=== PATIENT | male | born 1945 | race Two or more races ===

== ENCOUNTER 2022-05-25 02:03 | Emergency (ER) | payer OTHER ==
[~2022-05-25] VITALS: Ht 170.2 cm; Wt 70.0 kg
[2022-05-25 02:20] VITALS: BP 162/87
[2022-05-25 03:44] LABS: Urine Bacteria FEW /hpf (None Seen); Urine Blood 3+ /uL (Negative); Urine Specific Gravity 1.006 (1.001-1.035); Urine WBC 159 /hpf (0 - 3); Urine WBC Clumps PRESENT /hpf (None Seen)
[2022-05-25] MEDS ORDERED: cefTRIAXone 1GM/50ML D5W 50 ML IV ONE (03:45)
== END 2022-05-25 05:00 | disposition home or self-care (01) ==
LOC: EDBD 02:03 → ER 02:16
DX: T83.091A Other mechanical complication of indwelling urethral catheter, initial encounter (principal); N39.0 Urinary tract infection, site not specified; I10 Essential (primary) hypertension; Z86.73 Personal history of transient ischemic attack (TIA), and cerebral infarction without residual deficits
CPT/HCPCS: 51702; 81001; 96365; 99284; J0696

== ENCOUNTER 2022-07-08 11:46 | Emergency (ER) | payer OTHER ==
[~2022-07-08] VITALS: Ht 175.3 cm; Wt 73.0 kg
[2022-07-08 19:08] LABS: Albumin 3.4 g/dL (3.4-5.0); BUN/Creatinine Ratio 26.4; Calcium 9.4 mg/dL (8.5-10.1); Potassium 3.5 mmol/L (3.5-5.1)
[2022-07-08 19:17] LABS: Basophils # (auto) 0.1 10 ^3/uL (0-0.2); Basophils % (auto) 1.2 % (0.0-2.0); Eosinophils # (auto) 0.1 10 ^3/uL (0-0.8); Eosinophils % (auto) 3.3 % (0.0-7.0); Hematocrit 35.6 % (41.0-53.0); Hemoglobin 11.6 g/dL (13.5-17.5); Lymphocytes % (auto) 45.5 % (10.0-50.0); Mean Corpuscular Hgb Conc. 32.7 g/dL (32.0-36.0); Mean Corpuscular Volume 91.8 fL (80.0-100.0); Monocytes # (auto) 0.3 10 ^3/uL (0-1.3); Monocytes % (auto) 7.2 % (0.0-12.0); Neutrophils # (auto) 1.9 10 ^3/uL (1.6-8.6); Neutrophils % (auto) 42.8 % (37.0-80.0); Nucleated Red Blood Cells % 0.2 %; Red Blood Cells 3.88 10^6/uL (4.5-5.90); Red Cell Distribution Width 14.8 % (11.8-14.3); White Blood Cell 4.4 10^3/uL (4.4-10.8)
[2022-07-08 19:20] LABS: Total Protein 7.2 g/dL (6.4-8.2)
[2022-07-08] MEDS ORDERED: CEPH-510 PO (20:59)
[2022-07-08 22:38] LABS: Urine Bacteria MOD /hpf (None Seen); Urine Blood 3+ /uL (Negative); Urine Specific Gravity 1.003 (1.001-1.035); Urine WBC 46 /hpf (0 - 3)
[2022-07-08 23:14] VITALS: BP 146/83
== END 2022-07-08 23:40 | disposition home or self-care (01) ==
LOC: ER 12:00
DX: N39.0 Urinary tract infection, site not specified (principal); I10 Essential (primary) hypertension; Z86.73 Personal history of transient ischemic attack (TIA), and cerebral infarction without residual deficits
CPT/HCPCS: 36415; 51702; 80053; 81001; 85025

== ENCOUNTER → 2022-08-08 | Outpatient (CLI) | payer OTHER ==
[~2022-08-08] MED LIST: CEPH-510 PO
[2022-08-08 10:48] LABS: Basophils # (auto) 0 10 ^3/uL (0-0.2); Basophils % (auto) 0.7 % (0.0-2.0); Eosinophils # (auto) 0.1 10 ^3/uL (0-0.8); Eosinophils % (auto) 3.8 % (0.0-7.0); Hemoglobin 11.6 g/dL (13.5-17.5); Lymphocytes # (auto) 1.7 10 ^3/uL (0.4-5.4); Lymphocytes % (auto) 44.6 % (10.0-50.0); Mean Corpuscular Hgb Conc. 33.1 g/dL (32.0-36.0); Mean Corpuscular Volume 90.5 fL (80.0-100.0); Monocytes # (auto) 0.3 10 ^3/uL (0-1.3); Monocytes % (auto) 7.6 % (0.0-12.0); Neutrophils # (auto) 1.7 10 ^3/uL (1.6-8.6); Neutrophils % (auto) 43.3 % (37.0-80.0); Nucleated Red Blood Cells % 0.1 %; Red Blood Cells 3.87 10^6/uL (4.5-5.90); White Blood Cell 3.8 10^3/uL (4.4-10.8)
[2022-08-08 11:07] LABS: Albumin 3.2 g/dL (3.4-5.0); Calcium 9.2 mg/dL (8.5-10.1); Potassium 3.5 mmol/L (3.5-5.1)
[2022-08-08 11:14] LABS: BUN/Creatinine Ratio 14.7; Bilirubin, Total 0.9 mg/dL (0.2-1.0); Total Protein 6.6 g/dL (6.4-8.2)
== END | disposition home or self-care (01) ==
LOC: LAB 10:08
PROVIDERS: ATTEND Student in an Organized Health Care Education/Training Program
DX: I10 Essential (primary) hypertension (principal); R73.9 Hyperglycemia, unspecified
CPT/HCPCS: 36415; 80053; 80061; 83036; 84443; 85025

== ENCOUNTER → 2022-09-14 | Outpatient (CLI) | payer OTHER ==
[2022-09-14 14:28] LABS: Urine Bacteria FEW /hpf (None Seen); Urine Blood 3+ /uL (Negative); Urine Budding Yeast MODERATE /hpf (None Seen); Urine Mucus FEW (None Seen); Urine Specific Gravity 1.011 (1.001-1.035); Urine WBC 330 /hpf (0 - 3); Urine WBC Clumps PRESENT /hpf (None Seen)
== END | disposition home or self-care (01) ==
LOC: LAB 12:50
PROVIDERS: ATTEND Urology
DX: N39.0 Urinary tract infection, site not specified (principal)
CPT/HCPCS: 81001; 87086

== ENCOUNTER → 2022-10-11 | Outpatient (CLI) | payer OTHER ==
[2022-10-11 10:42] LABS: Basophils # (auto) 0 10 ^3/uL (0-0.2); Basophils % (auto) 0.6 % (0.0-2.0); Eosinophils # (auto) 0.1 10 ^3/uL (0-0.8); Eosinophils % (auto) 3.1 % (0.0-7.0); Hematocrit 37.2 % (41.0-53.0); Hemoglobin 12.7 g/dL (13.5-17.5); Lymphocytes # (auto) 1.7 10 ^3/uL (0.4-5.4); Lymphocytes % (auto) 43.3 % (10.0-50.0); Mean Corpuscular Hemoglobin 31.4 pg (28.0-32.0); Mean Corpuscular Hgb Conc. 34.1 g/dL (32.0-36.0); Mean Corpuscular Volume 91.9 fL (80.0-100.0); Monocytes # (auto) 0.3 10 ^3/uL (0-1.3); Neutrophils # (auto) 1.8 10 ^3/uL (1.6-8.6); Red Blood Cells 4.05 10^6/uL (4.5-5.90); Red Cell Distribution Width 14.9 % (11.8-14.3); White Blood Cell 3.9 10^3/uL (4.4-10.8)
[2022-10-11 10:51] LABS: Potassium 3.3 mmol/L (3.5-5.1)
[2022-10-11 11:05] LABS: Albumin 3.2 g/dL (3.4-5.0); BUN/Creatinine Ratio 12.3; Bilirubin, Total 0.8 mg/dL (0.2-1.0); Calcium 9.1 mg/dL (8.5-10.1)
== END | disposition home or self-care (01) ==
LOC: LAB 09:48
PROVIDERS: ATTEND Student in an Organized Health Care Education/Training Program
DX: I10 Essential (primary) hypertension (principal); E78.5 Hyperlipidemia, unspecified
CPT/HCPCS: 36415; 80053; 80061; 85025

== ENCOUNTER → 2022-11-16 | Outpatient (CLI) | payer OTHER ==
[2022-11-16 15:44] LABS: Urine Bacteria FEW /hpf (None Seen); Urine Blood 3+ /uL (Negative); Urine Specific Gravity 1.004 (1.001-1.035); Urine WBC 72 /hpf (0 - 3); Urine WBC Clumps PRESENT /hpf (None Seen)
== END | disposition home or self-care (01) ==
LOC: LAB 15:16
PROVIDERS: ATTEND Urology
DX: N39.0 Urinary tract infection, site not specified (principal)
CPT/HCPCS: 81001; 87086

== ENCOUNTER 2022-11-23 15:53 | Emergency (ER) | payer OTHER ==
[~2022-11-23] VITALS: Ht 175.3 cm; Wt 77.2 kg
[2022-11-23 16:59] VITALS: BP 137/86
[2022-11-23] MEDS ORDERED: CIPR-173 PO (17:59)
[2022-11-23 18:30] LABS: Urine Bacteria NONE SEEN /hpf (None Seen); Urine Blood 3+ /uL (Negative); Urine Specific Gravity 1.014 (1.001-1.035); Urine WBC 451 /hpf (0 - 3); Urine WBC Clumps PRESENT /hpf (None Seen)
== END 2022-11-23 18:15 | disposition home or self-care (01) ==
LOC: ER 15:53
DX: T83.098A Other mechanical complication of other urinary catheter, initial encounter (principal); N39.0 Urinary tract infection, site not specified; I10 Essential (primary) hypertension; Z86.73 Personal history of transient ischemic attack (TIA), and cerebral infarction without residual deficits
CPT/HCPCS: 51702; 81001

== ENCOUNTER → 2022-12-04 | Outpatient (CLI) | payer OTHER ==
[~2022-12-04] MED LIST changes: +CIPR-173 PO
[2022-12-04 13:12] LABS: Urine Bacteria NONE SEEN /hpf (None Seen); Urine Blood TRACE /uL (Negative); Urine Mucus FEW (None Seen); Urine Specific Gravity 1.024 (1.001-1.035); Urine WBC 164 /hpf (0 - 3); Urine WBC Clumps PRESENT /hpf (None Seen)
== END | disposition home or self-care (01) ==
LOC: LAB 12:40
PROVIDERS: ATTEND Urology
DX: N39.0 Urinary tract infection, site not specified (principal)
CPT/HCPCS: 81001; 87086

== ENCOUNTER → 2023-01-17 | Outpatient (CLI) | payer OTHER | END | disposition home or self-care (01) | LOC: XY 09:03 | PROVIDERS: ATTEND Internal Medicine | DX: Z01.810 Encounter for preprocedural cardiovascular examination (principal) | CPT/HCPCS: 93886 ==

== ENCOUNTER → 2023-01-22 | Outpatient (CLI) | payer OTHER | END | disposition home or self-care (01) | LOC: XYW 07:57 | PROVIDERS: ATTEND Internal Medicine | DX: Z01.810 Encounter for preprocedural cardiovascular examination (principal); I51.7 Cardiomegaly | CPT/HCPCS: 93306 ==

== ENCOUNTER 2023-05-21 13:15 | Emergency (ER) | payer OTHER ==
[~2023-05-21] VITALS: Ht 175.3 cm; Wt 77.0 kg
[2023-05-21 14:00] LABS: Basophils # (auto) 0 10 ^3/uL (0-0.2); Basophils % (auto) 0.4 % (0.0-2.0); Eosinophils # (auto) 0 10 ^3/uL (0-0.8); Eosinophils % (auto) 0.7 % (0.0-7.0); Hematocrit 36.2 % (41.0-53.0); Lymphocytes # (auto) 1.7 10 ^3/uL (0.4-5.4); Lymphocytes % (auto) 36.5 % (10.0-50.0); Mean Corpuscular Hgb Conc. 33.3 g/dL (32.0-36.0); Mean Corpuscular Volume 93.2 fL (80.0-100.0); Monocytes # (auto) 0.3 10 ^3/uL (0-1.3); Neutrophils # (auto) 2.7 10 ^3/uL (1.6-8.6); Neutrophils % (auto) 56.4 % (37.0-80.0); Nucleated Red Blood Cells % 0.1 %; Red Blood Cells 3.88 10^6/uL (4.5-5.90); Red Cell Distribution Width 13.7 % (11.8-14.3); White Blood Cell 4.7 10^3/uL (4.4-10.8)
[2023-05-21 14:23] LABS: Albumin 3.3 g/dL (3.4-5.0); Calcium 8.7 mg/dL (8.5-10.1); Potassium 3.2 mmol/L (3.5-5.1)
[2023-05-21 14:29] LABS: BUN/Creatinine Ratio 14.5 (10.0-20.0); Bilirubin, Total 0.7 mg/dL (0.2-1.0); Total Protein 7.4 g/dL (6.4-8.2)
[2023-05-21 17:07] LABS: Urine Amorphous Crystal MOD /hpf (None Seen); Urine Bacteria NONE SEEN /hpf (None Seen); Urine Blood Negative /uL (Negative); Urine Clarity CLOUDY (Clear); Urine Color Yellow (Yellow); Urine Protein, UAD 1+ (Negative); Urine Specific Gravity 1.014 (1.001-1.035); Urine Urobilinogen Normal (Negative); Urine WBC 63 /hpf (0 - 3)
[2023-05-21] MEDS ORDERED: CEPH250C PO (18:06)
[2023-05-21] MEDS ORDERED: CEPHALEXIN 250 MG CAP PO ONE (18:15)
[2023-05-21 18:21] VITALS: BP 156/74; PULSE 62; RESP 16; TEMP 97.5; O2SAT 96
== END 2023-05-21 18:30 | disposition home or self-care (01) ==
LOC: ER 13:15
DX: R42 Dizziness and giddiness (principal); R53.1 Weakness; I10 Essential (primary) hypertension; Z86.73 Personal history of transient ischemic attack (TIA), and cerebral infarction without residual deficits
CPT/HCPCS: 36415; 70450; 80053; 81001; 85025; 93005

== ENCOUNTER → 2023-08-28 | Outpatient (CLI) | payer OTHER ==
[~2023-08-28] MED LIST changes: +CEPH250C PO
[2023-08-28 08:00] LABS: Alanine Aminotransferase 30 U/L (7-40); Alkaline Phosphatase 89 U/L (46-116); Anion Gap 4 (5-15); BUN/Creatinine Ratio 7.9 (10.0-20.0); Blood Urea Nitrogen 5 mg/dL (9-23); Calcium 9.5 mg/dL (8.5-10.1); Carbon Dioxide 32 mmol/L (20-30); Chloride 105 mmol/L (98-107); Glucose 96 mg/dL (74-106); LDL Cholesterol 37 mg/dL (< 100); Potassium 3.2 mmol/L (3.5-5.1); Sodium 141 mmol/L (136-145); Triglycerides 49 mg/dL (< 150)
[2023-08-28 08:01] LABS: Albumin 4.2 g/dL (3.2-4.8); Aspartate Aminotransferase 22 U/L (13-40); Cholesterol 102 mg/dL (< 200)
[2023-08-28 08:02] LABS: Bilirubin, Total 1.2 mg/dL (0.2-1.0); HDL Cholesterol 48 mg/dL (40-59); Total Protein 7.6 g/dL (5.7-8.2)
[2023-08-28 08:13] LABS: Urine Bacteria NONE SEEN /hpf (None Seen); Urine Blood TRACE /uL (Negative); Urine Clarity HAZY (Clear); Urine Color Straw (Yellow); Urine Protein, UAD Negative (Negative); Urine Specific Gravity 1.009 (1.001-1.035); Urine Urobilinogen Normal (Negative); Urine WBC 15 /hpf (0 - 3); Urine WBC Clumps PRESENT /hpf (None Seen)
[2023-08-28 08:25] LABS: Basophils # (auto) 0 10 ^3/uL (0-0.2); Basophils % (auto) 0.7 % (0.0-2.0); Eosinophils # (auto) 0.1 10 ^3/uL (0-0.8); Eosinophils % (auto) 3.9 % (0.0-7.0); Hematocrit 39.7 % (41.0-53.0); Hemoglobin 13.3 g/dL (13.5-17.5); Lymphocytes # (auto) 1.9 10 ^3/uL (0.4-5.4); Lymphocytes % (auto) 52.1 % (10.0-50.0); Mean Corpuscular Hemoglobin 30.9 pg (28.0-32.0); Mean Corpuscular Hgb Conc. 33.5 g/dL (32.0-36.0); Mean Corpuscular Volume 92.3 fL (80.0-100.0); Monocytes # (auto) 0.3 10 ^3/uL (0-1.3); Monocytes % (auto) 7.3 % (0.0-12.0); Neutrophils # (auto) 1.3 10 ^3/uL (1.6-8.6); Nucleated Red Blood Cells % 0.1 %; Red Cell Distribution Width 14.3 % (11.8-14.3); White Blood Cell 3.7 10^3/uL (4.4-10.8)
== END | disposition home or self-care (01) ==
LOC: LAB 07:25
PROVIDERS: ATTEND Student in an Organized Health Care Education/Training Program
DX: I10 Essential (primary) hypertension (principal); N40.0 Benign prostatic hyperplasia without lower urinary tract symptoms
CPT/HCPCS: 36415; 80053; 80061; 81001; 84153; 85025

== ENCOUNTER → 2023-09-13 | Day surgery (SDC) | payer OTHER ==
[2023-09-11 12:33] LABS: Basophils # (auto) 0 10 ^3/uL (0-0.2); Basophils % (auto) 1.3 % (0.0-2.0); Eosinophils # (auto) 0.2 10 ^3/uL (0-0.8); Eosinophils % (auto) 5.1 % (0.0-7.0); Hematocrit 37.5 % (41.0-53.0); Hemoglobin 12.8 g/dL (13.5-17.5); Lymphocytes # (auto) 1.6 10 ^3/uL (0.4-5.4); Lymphocytes % (auto) 43.5 % (10.0-50.0); Mean Corpuscular Hemoglobin 31.4 pg (28.0-32.0); Mean Corpuscular Volume 92.4 fL (80.0-100.0); Monocytes # (auto) 0.3 10 ^3/uL (0-1.3); Monocytes % (auto) 8.6 % (0.0-12.0); Neutrophils # (auto) 1.6 10 ^3/uL (1.6-8.6); Neutrophils % (auto) 41.5 % (37.0-80.0); Nucleated Red Blood Cells % 0.1 %; Red Blood Cells 4.06 10^6/uL (4.5-5.90); Red Cell Distribution Width 14.5 % (11.8-14.3); White Blood Cell 3.8 10^3/uL (4.4-10.8)
[2023-09-11 12:54] LABS: INR 1.08 (0.9-1.15); Partial Thromboplastin Time 28.8 SEC (24.5-34.5); Prothrombin Time 11.3 sec (9.3-11.8)
[2023-09-11 13:04] LABS: Urine Bacteria FEW /hpf (None Seen); Urine Blood Negative /uL (Negative); Urine Clarity HAZY (Clear); Urine Color Colorless (Yellow); Urine Protein, UAD Negative (Negative); Urine Specific Gravity 1.008 (1.001-1.035); Urine Urobilinogen Normal (Negative); Urine WBC 29 /hpf (0 - 3); Urine pH 7.5 (5.0-8.0)
[2023-09-11 13:26] LABS: Alanine Aminotransferase 33 U/L (7-40); Albumin 4.1 g/dL (3.2-4.8); Alkaline Phosphatase 88 U/L (46-116); Anion Gap 4 (5-15); Aspartate Aminotransferase 23 U/L (13-40); BUN/Creatinine Ratio 12.9 (10.0-20.0); Blood Urea Nitrogen 9 mg/dL (9-23); Calcium 9.2 mg/dL (8.7-10.4); Carbon Dioxide 32 mmol/L (20-30); Chloride 103 mmol/L (98-107); Glucose 97 mg/dL (74-106); Potassium 3.7 mmol/L (3.5-5.1); Sodium 139 mmol/L (136-145); Total Protein 7.2 g/dL (5.7-8.2)
[~2023-09-13] VITALS: Ht 175.3 cm; Wt 77.1 kg
[~2023-09-13] MED LIST changes: +AMLO1TAB22 PO; +ASPI81CH59 PO; +ATOR80TA PO; +BACITRACIN TOP OINT 1 UD PKG TOP ONE; -CEPH-510 PO; -CEPH250C PO; -CIPR-173 PO; +DexAMETHasone SOD PHOS 10MG/1ML VIAL INJ ONE; +GABA-1308 PO; +GLYCOPYRROLATE 0.2 MG/ML 1ML VIAL ONE; +HYDROmorphone HCL 2 MG/ML VL/or syr IV PRN; +LIDOCAINE W/ EPINEPHRINE 1% 20ML VIAL ONE; +LISI20TA56 PO; +MEPERIDINE HCL (25 MG/ML) 1ML VIAL IV PRN; +MEPERIDINE HCL (25 MG/ML) 1ML VIAL ONE; +MET50T PO; +ONDANSETRON HCL 4 MG/2 ML VIAL IV PRN; +ONDANSETRON HCL 4 MG/2 ML VIAL ONE; +PROPOFOL 10 MG/ML 20 ML IV ONE; +TAMS1CAP25 PO; +cefTRIAXone SOD 1,000 MG VL ONE; +ePHEDrine SULFATE 50 MG/ML AMP ONE; +fentaNYL CITRATE 100 MCG/2 ML VL ONE
[2023-09-13 10:25] VITALS: BP 139/75; PULSE 66; RESP 11; TEMP 97.8; O2SAT 98
== END | disposition home or self-care (01) ==
LOC: SUR 06:13
PROVIDERS: ATTEND Urology
DX: N40.1 Benign prostatic hyperplasia with lower urinary tract symptoms (principal); R33.8 Other retention of urine; N47.1 Phimosis; N41.0 Acute prostatitis; N41.1 Chronic prostatitis
CPT/HCPCS: 36415; 52601; 54161; 80053; 81001; 85025; 85610; 85730; 87086; 88305; 88342; J0696; J1100; J1170; J2175; J2405; J2704; J3010; J7030

== ENCOUNTER → 2023-11-26 | Outpatient (CLI) | payer OTHER ==
[~2023-11-26] MED LIST changes: -BACITRACIN TOP OINT 1 UD PKG TOP ONE; -DexAMETHasone SOD PHOS 10MG/1ML VIAL INJ ONE; -GLYCOPYRROLATE 0.2 MG/ML 1ML VIAL ONE; -HYDROmorphone HCL 2 MG/ML VL/or syr IV PRN; -LIDOCAINE W/ EPINEPHRINE 1% 20ML VIAL ONE; -MEPERIDINE HCL (25 MG/ML) 1ML VIAL IV PRN; -MEPERIDINE HCL (25 MG/ML) 1ML VIAL ONE; -ONDANSETRON HCL 4 MG/2 ML VIAL IV PRN; -ONDANSETRON HCL 4 MG/2 ML VIAL ONE; -PROPOFOL 10 MG/ML 20 ML IV ONE; -cefTRIAXone SOD 1,000 MG VL ONE; -ePHEDrine SULFATE 50 MG/ML AMP ONE; -fentaNYL CITRATE 100 MCG/2 ML VL ONE
[2023-11-26 07:17] LABS: Urine Bacteria NONE SEEN /hpf (None Seen); Urine Blood 1+ /uL (Negative); Urine Budding Yeast FEW /hpf (None Seen); Urine Clarity HAZY (Clear); Urine Color Yellow (Yellow); Urine Mucus FEW (None Seen); Urine Protein, UAD TRACE (Negative); Urine Specific Gravity 1.015 (1.001-1.035); Urine Urobilinogen Normal (Negative); Urine WBC 5 /hpf (0 - 3)
[2023-11-26 07:21] LABS: Basophils # (auto) 0 10 ^3/uL (0-0.2); Basophils % (auto) 0.8 % (0.0-2.0); Eosinophils # (auto) 0.1 10 ^3/uL (0-0.8); Eosinophils % (auto) 2.4 % (0.0-7.0); Hemoglobin 13.2 g/dL (13.5-17.5); Lymphocytes % (auto) 53.8 % (10.0-50.0); Mean Corpuscular Hemoglobin 31.3 pg (28.0-32.0); Mean Corpuscular Hgb Conc. 33.1 g/dL (32.0-36.0); Mean Corpuscular Volume 94.6 fL (80.0-100.0); Monocytes # (auto) 0.3 10 ^3/uL (0-1.3); Monocytes % (auto) 8.3 % (0.0-12.0); Neutrophils # (auto) 1.3 10 ^3/uL (1.6-8.6); Neutrophils % (auto) 34.7 % (37.0-80.0); Nucleated Red Blood Cells % 0.4 %; Red Blood Cells 4.23 10^6/uL (4.5-5.90); Red Cell Distribution Width 14.3 % (11.8-14.3); White Blood Cell 3.7 10^3/uL (4.4-10.8)
[2023-11-26 08:12] LABS: Alanine Aminotransferase 26 U/L (7-40); Alkaline Phosphatase 80 U/L (46-116); Anion Gap 5 (5-15); Aspartate Aminotransferase 21 U/L (13-40); BUN/Creatinine Ratio 12.3 (10.0-20.0); Bilirubin, Total 1.1 mg/dL (0.2-1.0); Blood Urea Nitrogen 9 mg/dL (9-23); Calcium 9.4 mg/dL (8.5-10.1); Carbon Dioxide 30 mmol/L (20-30); Chloride 107 mmol/L (98-107); Cholesterol 105 mg/dL (< 200); Glucose 92 mg/dL (74-106); HDL Cholesterol 49 mg/dL (40-59); LDL Cholesterol 42 mg/dL (< 100); Potassium 3.3 mmol/L (3.5-5.1); Sodium 142 mmol/L (136-145); Triglycerides 46 mg/dL (< 150)
[2023-11-26 08:13] LABS: Total Protein 7.2 g/dL (5.7-8.2)
== END | disposition home or self-care (01) ==
LOC: LAB 06:50
DX: I10 Essential (primary) hypertension (principal); R32 Unspecified urinary incontinence
CPT/HCPCS: 36415; 80053; 80061; 81001; 83036; 85025

== ENCOUNTER → 2024-02-25 | Outpatient (CLI) | payer OTHER ==
[2024-02-25 07:01] LABS: Urine Bacteria None Seen /hpf (None Seen)
[2024-02-25 07:50] LABS: Basophils # (auto) 0 10 ^3/uL (0-0.2); Basophils % (auto) 0.5 % (0.0-2.0); Eosinophils # (auto) 0.1 10 ^3/uL (0-0.8); Eosinophils % (auto) 2.9 % (0.0-7.0); Hematocrit 38.3 % (41.0-53.0); Hemoglobin 12.9 g/dL (13.5-17.5); Lymphocytes # (auto) 2.1 10 ^3/uL (0.4-5.4); Lymphocytes % (auto) 50.9 % (10.0-50.0); Mean Corpuscular Hemoglobin 31.8 pg (28.0-32.0); Mean Corpuscular Hgb Conc. 33.6 g/dL (32.0-36.0); Mean Corpuscular Volume 94.7 fL (80.0-100.0); Monocytes # (auto) 0.3 10 ^3/uL (0-1.3); Monocytes % (auto) 7.9 % (0.0-12.0); Neutrophils # (auto) 1.6 10 ^3/uL (1.6-8.6); Neutrophils % (auto) 37.8 % (37.0-80.0); Red Blood Cells 4.04 10^6/uL (4.5-5.90); Red Cell Distribution Width 14.3 % (11.8-14.3); White Blood Cell 4.2 10^3/uL (4.4-10.8)
[2024-02-25 08:12] LABS: Urine Blood Negative /uL (Negative); Urine Clarity Clear (Clear); Urine Color Colorless (Yellow); Urine Protein, UAD Negative (Negative); Urine Specific Gravity 1.008 (1.001-1.035); Urine Urobilinogen Normal (Negative); Urine WBC <1 /hpf (0 - 3); Urine pH 7.5 (5.0-9.0)
[2024-02-25 08:25] LABS: Alanine Aminotransferase 27 U/L (7-40); Albumin 4.1 g/dL (3.2-4.8); Alkaline Phosphatase 83 U/L (46-116); Anion Gap 10 (5-15); Aspartate Aminotransferase 22 U/L (13-40); BUN/Creatinine Ratio 14.3 (10.0-20.0); Bilirubin, Total 0.8 mg/dL (0.2-1.0); Blood Urea Nitrogen 9 mg/dL (9-23); Calcium 9.4 mg/dL (8.5-10.1); Carbon Dioxide 25 mmol/L (20-30); Chloride 107 mmol/L (98-107); Glucose 90 mg/dL (74-106); Potassium 3.5 mmol/L (3.5-5.1); Sodium 142 mmol/L (136-145); Total Protein 7.4 g/dL (5.7-8.2)
[2024-02-25 10:33] LABS: Prostate Specific Antigen 0.76 ng/mL (0.0-4.0)
== END | disposition home or self-care (01) ==
LOC: LAB 06:48
PROVIDERS: ATTEND Student in an Organized Health Care Education/Training Program
DX: I10 Essential (primary) hypertension (principal); E55.9 Vitamin D deficiency, unspecified; N40.0 Benign prostatic hyperplasia without lower urinary tract symptoms; D64.9 Anemia, unspecified
CPT/HCPCS: 36415; 80053; 81001; 82306; 82607; 84153; 85025

== ENCOUNTER → 2024-08-27 | Outpatient (CLI) | payer OTHER ==
[2024-08-27 07:38] LABS: Hematocrit 39.9 % (41.0-53.0); Hemoglobin 13.9 g/dL (13.5-17.5); Mean Corpuscular Hgb Conc. 34.9 g/dL (32.0-36.0); Mean Corpuscular Volume 94.6 fL (80.0-100.0); Platelet Count (auto) 112 10^3/uL (140-450); Red Blood Cells 4.22 10^6/uL (4.5-5.90); Red Cell Distribution Width 14.2 % (11.8-14.3); White Blood Cell 3.6 10^3/uL (4.4-10.8)
[2024-08-27 07:40] LABS: Band Neutrophils % (manual) 0; Basophils % (manual) 0 (0.0-2.0); Blast Cells 0; Eosinophils % (manual) 0 (0-7); Metamyelocytes % 0; Myelocytes % 0; Promyelocytes % 0; Reactive Lymphocytes 0
[2024-08-27 07:57] LABS: Alanine Aminotransferase 23 U/L (7-40); Alkaline Phosphatase 85 U/L (46-116); Anion Gap 4 (5-15); BUN/Creatinine Ratio 11.4 (10.0-20.0); Blood Urea Nitrogen 8 mg/dL (9-23); Calcium 9.7 mg/dL (8.7-10.4); Carbon Dioxide 32 mmol/L (20-31); Chloride 103 mmol/L (98-107); Glucose 93 mg/dL (74-106); Sodium 139 mmol/L (136-145)
[2024-08-27 07:58] LABS: Albumin 4.1 g/dL (3.2-4.8); Aspartate Aminotransferase 15 U/L (13-40); Bilirubin, Total 1.3 mg/dL (0.2-1.0); Total Protein 7.5 g/dL (5.7-8.2)
[2024-08-27 09:30] LABS: Lymphocytes % (manual) 71 (10.0-50.0); Monocytes % (manual) 5 (0-12)
[2024-08-27 09:31] LABS: Platelet Estimate Decreased
[2024-08-27 14:01] LABS: Urine Blood Negative /uL (Negative); Urine Clarity Clear (Clear); Urine Color Light-Yellow (Yellow); Urine Protein, UAD Negative (Negative); Urine Specific Gravity 1.009 (1.001-1.035); Urine Urobilinogen Normal (Negative); Urine WBC 1 /hpf (0 - 3); Urine pH 7.5 (5.0-9.0)
== END | disposition home or self-care (01) ==
LOC: LAB 07:15
PROVIDERS: ATTEND Student in an Organized Health Care Education/Training Program
DX: I10 Essential (primary) hypertension (principal)
CPT/HCPCS: 36415; 80053; 81001; 85007; 85027

== ENCOUNTER 2024-12-08 22:50 | Inpatient (IN) | payer OTHER ==
[~2024-12-08] VITALS: Ht 175.3 cm; Wt 76.8 kg
[2024-12-08 23:59] LABS: Basophils # (auto) 0 10 ^3/uL (0-0.2); Basophils % (auto) 0.2 % (0.0-2.0); Eosinophils # (auto) 0 10 ^3/uL (0-0.8); Eosinophils % (auto) 0.9 % (0.0-7.0); Hematocrit 38.1 % (41.0-53.0); Hemoglobin 13.1 g/dL (13.5-17.5); Lymphocytes # (auto) 0.3 10 ^3/uL (0.4-5.4); Lymphocytes % (auto) 7.2 % (10.0-50.0); Mean Corpuscular Hemoglobin 32.5 pg (28.0-32.0); Mean Corpuscular Hgb Conc. 34.5 g/dL (32.0-36.0); Mean Corpuscular Volume 94.2 fL (80.0-100.0); Monocytes # (auto) 0.4 10 ^3/uL (0-1.3); Monocytes % (auto) 10.1 % (0.0-12.0); Neutrophils # (auto) 3.6 10 ^3/uL (1.6-8.6); Neutrophils % (auto) 81.6 % (37.0-80.0); Nucleated Red Blood Cells % 0.1 %; Platelet Count (auto) 102 10^3/uL (140-450); Red Blood Cells 4.04 10^6/uL (4.5-5.90); Red Cell Distribution Width 13.6 % (11.8-14.3); White Blood Cell 4.4 10^3/uL (4.4-10.8)
[2024-12-09 00:06] LABS: Rapid Influenza A Negative (Negative); Rapid Influenza B Negative (Negative)
[2024-12-09 00:07] LABS: COVID19 ANTIGEN SOFIA FIA NEGATIVE (NEGATIVE)
--- NOTE | 2024-12-09 00:13 | ED.PDOC ---
History of Present Illness HPI Comments 79 y/o M, with a Hx of BPH, CVA w/left-sided deficits, HTN, and UTI's, presents with c/o ALOC w/confusion, today. Per son, patient is commented to have been found, earlier, altered from his usual baseline, characterized by confusion and inability to follow instructions. Patient has no commented recent ailments, sick contact, travel, or other relevant or pertinent information. Patient, upon arrival to ED triage, was found with a SpO2 of 91%RA, blood pressure of 144/86, and a temperature of 100.2F. Patient denies having any shortness of breath, cough, chills, nausea, urinary symptoms, or other associated symptoms or modifiers at this time. Chief Complaint: ALOC Time Seen by MD: 23:20 Primary Care Provider: GILLIAN Reviewed Notes: Nurses Notes, Medications, Allergies Allergies: Coded Allergies: NO KNOWN ALLERGIES (Unverified , 05/25/22) Home Meds Reported Medications Gabapentin (Gabapentin) 100 Mg Cap, 100 MG PO TID, CAP 09/11/23 Atorvastatin Calcium (Lipitor) 80 Mg Tab, 80 MG PO DAILY, TAB 09/11/23 Aspirin (Aspirin Low Dose) 81 Mg Chw, 81 MG PO DAILY, TAB.CHEW 09/11/23 Amlodipine Besylate (Amlodipine Besylate) 5 Mg Tab, 5 MG PO DAILY, TAB 09/11/23 Tamsulosin HCl (Tamsulosin Hydrochloride) 0.4 Mg Cap, 0.4 MG PO HS, CAP 09/11/23 Metoprolol Tartrate (LOPRESSOR TABLET) 50 Mg Tb, 50 MG PO BID, TAB 09/11/23 Lisinopril (Lisinopril) 20 Mg Tab, 20 MG PO DAILY, TAB 09/11/23 Information Source: Relative (Child) Mode of Arrival: Wheelchair Severity: Moderate Timing: Hours Duration: Since onset Prehospital treatment: None Past Medical History PAST MEDICAL HISTORY: CVA (w/left-sided deficits ), HTN, UTI'S Past Medical History (Other): BPH s/p surgery Surgical History (Other): surgery Family History Family History: Reviewed,noncontributory to illness Social History Smoker: Non-Smoker Alcohol: Denies ETOH Use Drugs: Denies Drug Use Lives In: Home, Assisted Care Neurological: reports: others (ALOC w/confusion) All Other Systems: Reviewed and Negative (negative unless otherwises stated above or in HPI) Physical Exam General Appearance: Mild Distress, Normal HEENT: Normal ENT Inspection, Pharynx Normal, TMs Normal Neck: Full Range of Motion, Non-Tender, Normal, Normal Inspection Respiratory: Chest Non-Tender, Lungs Clear, No Accessory Muscle Use, No Respiratory Distress, Normal Breath Sounds Cardiovascular: No Edema, No JVD, No Murmur, No Gallop, Normal Peripheral Pulses, Regular Rate/Rhythm Breast Exam: Deferred Gastrointestinal: No Organomegaly, Non Tender, No Pulsatile Mass, Normal Bowel Sounds, Soft Genitalia: Deferred Pelvic: Deferred Rectal: Deferred Extremities: No calf tenderness, Normal capillary refill, Normal inspection, Normal range of motion, Non-tender, No pedal edema Musculoskeletal : Apperance: Normal Neurologic: Alert, rodent exterminator II-XII nml as Tested, No Motor Deficits, Normal Affect, Normal Mood, No Sensory Deficits, Other (confused, residual left-sided deficits s/p stroke ) Cerebellar Function: Normal Reflexes: Normal Skin: Dry, Normal Color, Warm Lymphatic: No Adenopathy Was a procedure done? Was a procedure done?: No EKG EKG : Pulse Rate (adult): 85 [place]: Normal Cardiac Rhythm: NSR Block: None Hypertrophy: None ST: Normal Differential Dx Considerations may include: encephalopathy, dehydration, electrolyte imbalance, early-onset dementia, UTI, viral syndrome, URI X-Ray, Labs, Meds, VS Vital Signs Date Time Temp Pulse Resp B/P (MAP) Pulse Ox O2 Delivery O2 Flow Rate FiO2 12/09/24 00:13 85 12/08/24 23:36 85 12/08/24 23:16 100.2 86 16 144/86 (105) 91 Lab Test 12/09/24 01:13 12/08/24 23:42 12/08/24 23:29 Range/Units Troponin I High Sensitivity 12 11 </=54 ng/L White Blood Count 4.4 4.4-10.8 10^3/uL Red Blood Count 4.04 L 4.5-5.90 10^6/uL Hemoglobin 13.1 L 13.5-17.5 g/dL Hematocrit 38.1 L 41.0-53.0 % Mean Corpuscular Volume 94.2 80.0-100.0 fL Mean Corpuscular Hemoglobin 32.5 H 28.0-32.0 pg Mean Corpuscular Hemoglobin Concent 34.5 32.0-36.0 g/dL Red Cell Distribution Width 13.6 11.8-14.3 % Platelet Count 102 L 140-450 10^3/uL Mean Platelet Volume 9.8 6.9-10.8 fL Neutrophils (%) (Auto) 81.6 H 37.0-80.0 % Lymphocytes (%) (Auto) 7.2 L 10.0-50.0 % Monocytes (%) (Auto) 10.1 0.0-12.0 % Eosinophils (%) (Auto) 0.9 0.0-7.0 % Basophils (%) (Auto) 0.2 0.0-2.0 % Neutrophils # (Auto) 3.6 1.6-8.6 10 ^3/uL Lymphocytes # (Auto) 0.3 L 0.4-5.4 10 ^3/uL Monocytes # (Auto) 0.4 0-1.3 10 ^3/uL Eosinophils # (Auto) 0 0-0.8 10 ^3/uL Basophils # (Auto) 0 0-0.2 10 ^3/uL Nucleated Red Blood Cells 0.1 % Prothrombin Time 11.2 9.3-11.8 sec Prothrombin Time INR 1.06 0.9-1.15 Activated Partial Thromboplast Time 30.2 24.5-34.5 SEC Sodium Level 137 136-145 mmol/L Potassium Level 3.1 L 3.5-5.1 mmol/L Chloride Level 102 98-107 mmol/L Carbon Dioxide Level 28 20-31 mmol/L Anion Gap 7 5-15 Blood Urea Nitrogen 14 9-23 mg/dL Creatinine 0.72 0.700-1.30 mg/dL Glomerular Filtration Rate Calc 93 >90 mL/min BUN/Creatinine Ratio 19.4 10.0-20.0 Serum Glucose 107 H 74-106 mg/dL Lactic Acid Level 0.9 0.4-2.0 mmol/L Calcium Level 9.6 8.7-10.4 mg/dL Total Bilirubin 0.8 0.2-1.0 mg/dL Aspartate Amino Transferase (AST) 24 13-40 U/L Alanine Aminotransferase (ALT) 25 7-40 U/L Alkaline Phosphatase 76 46-116 U/L Total Protein 7.3 5.7-8.2 g/dL Albumin 4.2 3.2-4.8 g/dL Plasma/Serum Blood Alcohol < 3.0 <10 mg/dL POC Glucose 104 70-106 mg/dl Influenza Type A Antigen Negative Negative Influenza Type B Antigen Negative Negative SARS-CoV-2 Antigen (Rapid) Negative NEGATIVE [id number] [facility] [address] Ph: [phone] DIAGNOSTIC IMAGING Diagnostic Imaging Report : [id number] Signed PATIENT: NORMAN SHAFER ACCT: [id number] UNIT: [id number] : 1945 LOC: ER ROOM / BED: / AGE / SEX: 79 / M ADM STATUS: REG ER SERVICE 42 ORDERING PHYSICIAN: JO ANN GIRON MD PROCEDURE(s): HWOCT - HEAD WITHOUT CONTRAST REASON: aloc ORDER NUMBER(s): [id number], ACCESSION NUMBER(s): [id number] EXAM: CT HEAD WITHOUT CONTRAST INDICATION: aloc TECHNIQUE: CT of the head without intravenous contrast. Radiation Dose : 1. Head: CT Dose: CTDI volume is 56.25 mGy. Dose-length product is 901.7 mGy*cm The dose indicators for CT are the volume Computed Tomography (CT) Dose Index (CTDIvol) and the Dose Length Product (DLP), and are measured in units of mGy and mGy-cm, respectively. These indicators are not patient dose, but values generated from the CT scanner acquisition factors. The report includes radiation exposure data for exposures received during this examination. COMPARISON: CT HEAD WITHOUT CONTRAST on DOS: 05/21/23 FINDINGS: There is no evidence of acute intracranial hemorrhage, extra-axial collection, mass effect, midline shift, herniation or hydrocephalus. Left cerebellar , left lower anterior frontal lobe and right parietal encephalomalacia. The ventricles, sulci and cisterns are age appropriate. The carvajal-white differentiation is intact. Patchy periventricular and subcortical white matter hypoattenuation is nonspecific but may be related to small vessel ischemic disease. The visualized paranasal sinuses and mastoid air cells are clear. The surrounding soft tissues and osseous structures are unremarkable. IMPRESSION: No acute intracranial abnormality. Radiation optimization: All CT scans at this facility use at least one of these dose optimization techniques: automated exposure control mA and/or kV adjustment per patient size (includes targeted exams where dose is matched to clinical indication) or iterative reconstruction. ATED BY: SOLO VALLADARES MD DICTATED DATE/TIME: 12/09/2413 SIGNED BY: SOLO VALLADARES MD SIGNED DATE/TIME: 12/09/2413 CC: [place] [id number] Ph: [phone] DIAGNOSTIC IMAGING Diagnostic Imaging Report : [id number] Signed PATIENT: NORMAN SHAFER ACCT: [id number] UNIT: [id number] : 1945 LOC: ER ROOM / BED: / AGE / SEX: 79 / M ADM STATUS: REG ER SERVICE 42 ORDERING PHYSICIAN: JO ANN GIRON MD PROCEDURE(s): CXRP - CHEST PORTABLE REASON: aloc ORDER NUMBER(s): [id number], ACCESSION NUMBER(s): [id number] CHEST RADIOGRAPH Indication: aloc Technique: Single frontal view of the chest was obtained COMPARISON: None FINDINGS: Lines and Tubes: None Lungs: Clear Pleura: No effusion. No pneumothorax. Cardiomediastinal contours: Unremarkable Bones: Unremarkable IMPRESSION: No acute disease. ATED BY: SOLO VALLADARES MD DICTATED DATE/TIME: 12/09/2412 SIGNED BY: SOLO VALLADARES MD SIGNED DATE/TIME: 12/09/2412 CC: Potassium 3.1 which was replaced. Troponin was 11 and 12. EKG shows no signs of ischemia. COVID and influenza a and B tests were negative. UA is pending. Patient will be admitted to the hospitalist for further evaluation Time of 1ST Reevaluation: 23:50 Reevaluation 1ST: Unchanged Patient Education/Counseling: Diagnosis, Treatment Family Education/Counseling: No Family Present Departure 1 Departure Time of Disposition: 04:39 Impression: Primary Impression: Altered mental status Qualified Codes: R41.82 - Altered mental status, unspecified Additional Impressions: Metabolic encephalopathy Hypokalemia Acute UTI (urinary tract infection) Disposition: 09 ADMITTED INPATIENT Admit to: Tele Condition: Guarded Critical Care Note Critical Care Time?: Yes (35 min-critical care time only) Stability Stability form required: No Heart Score Heart Score: Heart Score Response (Comments) Value History N/A 0 EKG N/A 0 Age N/A 0 Risk Factors N/A 0 Troponin N/A 0 Total 0 I personally scribed for JO ANN GIRON MD ([email or web address]) on 12/09/24 at 00:13. Electronically submitted by Kemal Shafer ([email or web address]). JO ANN GIRON MD Dec 09, 2024 00:13
[2024-12-09 00:17] LABS: Alanine Aminotransferase 25 U/L (7-40); Albumin 4.2 g/dL (3.2-4.8); Alkaline Phosphatase 76 U/L (46-116); Anion Gap 7 (5-15); Aspartate Aminotransferase 24 U/L (13-40); BUN/Creatinine Ratio 19.4 (10.0-20.0); Blood Urea Nitrogen 14 mg/dL (9-23); Calcium 9.6 mg/dL (8.7-10.4); Carbon Dioxide 28 mmol/L (20-31); Chloride 102 mmol/L (98-107); Sodium 137 mmol/L (136-145)
--- NOTE | 2024-12-09 00:17 | DVH ---
CHEST RADIOGRAPH Indication: aloc Technique: Single frontal view of the chest was obtained COMPARISON: None FINDINGS: Lines and Tubes: None Lungs: Clear Pleura: No effusion. No pneumothorax. Cardiomediastinal contours: Unremarkable Bones: Unremarkable IMPRESSION: No acute disease.
[2024-12-09 00:18] LABS: Bilirubin, Total 0.8 mg/dL (0.2-1.0); Total Protein 7.3 g/dL (5.7-8.2)
--- NOTE | 2024-12-09 00:18 | DVH ---
EXAM: CT HEAD WITHOUT CONTRAST INDICATION: aloc TECHNIQUE: CT of the head without intravenous contrast. Radiation Dose : 1. Head: CT Dose: CTDI volume is 56.25 mGy. Dose-length product is 901.7 mGy*cm The dose indicators for CT are the volume Computed Tomography (CT) Dose Index (CTDIvol) and the Dose Length Product (DLP), and are measured in units of mGy and mGy-cm, respectively. These indicators are not patient dose, but values generated from the CT scanner acquisition factors. The report includes radiation exposure data for exposures received during this examination. COMPARISON: CT HEAD WITHOUT CONTRAST on DOS: 05/21/23 FINDINGS: There is no evidence of acute intracranial hemorrhage, extra-axial collection, mass effect, midline s hift, herniation or hydrocephalus. Left cerebellar , left lower anterior frontal lobe and right parietal encephalomalacia. The ventricles, sulci and cisterns are age appropriate. The carvajal-white differentiation is intact. Patchy periventricular and subcortical white matter hypoattenuation is nonspecific but may be related to small vessel ischemic disease. The visualized paranasal sinuses and mastoid air cells are clear. The surrounding soft tissues and osseous structures are unremarkable. IMPRESSION: No acute intracranial abnormality. Radiation optimization: All CT scans at this facility use at least one of these dose optimization ray hniques: automated exposure control mA and/or kV adjustment per patient size (includes targeted exam s where dose is matched to clinical indication) or iterative reconstruction.
[2024-12-09 00:19] LABS: INR 1.06 (0.9-1.15); Partial Thromboplastin Time 30.2 SEC (24.5-34.5); Prothrombin Time 11.2 sec (9.3-11.8)
[2024-12-09 00:32] LABS: Blood Alcohol < 3.0 mg/dL (<10); Glucose 107 mg/dL (74-106); Potassium 3.1 mmol/L (3.5-5.1)
--- NOTE | 2024-12-09 00:41 | ECG ---
[facility] Test Date: 2024-12-08 Test Time: 23:36:43 Pat Name: NORMAN KUMAR Department: ED Room: [address] [place] [address] Gender: M Receiving And Processing Supervisor: ZABRINA : 1945 Requested By: JO ANN GIRON Order Number: [id number] Reading MD: Pb Wynn Measurements Intervals [place] Rate: 85 P: 52 NM: 161 QRS: -5 QRSD: 92 T: 56 QT: 387 QTc: 461 Interpretive Statements Sinus rhythm Probable left atrial enlargement LVH with secondary repolarization abnormality Electronically Signed On 12-09-2024 17:51:24 PST by Pb Wynn Please click the below link to view image of tracing.
[2024-12-09 04:40] VITALS: PULSE 72; RESP 18; O2SAT 98
[2024-12-09] MEDS: SODIUM CHLORIDE 0.9% 1,000 ML IV ONE (04:55)
[2024-12-09] MEDS: POTASSIUM CHL 20 Meq TABLET PO ONE (04:57)
[2024-12-09 05:13] VITALS: RESP 11; O2SAT 97
[2024-12-09 06:09] LABS: Urine Bacteria None Seen /hpf (None Seen)
[2024-12-09 06:34] LABS: Urine Blood Negative /uL (Negative); Urine Clarity Clear (Clear); Urine Color Yellow (Yellow); Urine Mucus FEW (None Seen); Urine Protein, UAD TRACE (Negative); Urine Specific Gravity 1.024 (1.001-1.035); Urine Squamous Epithelial Cell FEW /hpf (<5); Urine Urobilinogen Normal (Negative); Urine WBC 1 /HPF (0-3); Urine pH 6.5 (5.0-9.0)
[2024-12-09 07:05] LABS: Amphetamine Screen, Urine Neg (NEGATIVE); Barbiturate Scree,Urine Neg (NEGATIVE); Benzodiazephine Screen, Urine Neg (NEGATIVE); Cannabinoid Screen, Urine Neg (NEGATIVE); Cocaine Screen, Urine Neg (NEGATIVE); Opiate Scree,Urine Neg (NEGATIVE); Phencyclidine Screen, Urine Neg (NEGATIVE)
[2024-12-09] MEDS ORDERED: ONDANSETRON HCL 4 MG/2 ML VIAL IV PRN (08:00)
[2024-12-09] MEDS ORDERED: NITROGLYCERIN 0.4 MG SL TAB SL PRN (08:00)
[2024-12-09] MEDS ORDERED: DOCUSATE SOD 100 MG CAP PO PRN (08:00)
[2024-12-09] MEDS ORDERED: MORPHINE SULFATE INJ 2 MG/ml SYRG IV PRN (08:00)
[2024-12-09] MEDS ORDERED: ACETAMINOPHEN 325 MG TAB PO PRN (08:00)
--- NOTE | 2024-12-09 08:09 | DVHHP2 ---
History of Present Illness Reason for Visit: ALOC History of Present Illness Nixon Shafer is a 79-year-old male with past medical history of hypertension, hyperlipidemia, CVA with left sided weakness, BPH, who was brought to the ER for altered level of conciseness. Patient is unable to provide much history. There is no family at the bedside, and the phone number in the chart is not working. Per ER documentation, the family called EMS due to patient becoming more confused, having difficulty following commands, and difficulty ambulating. Patient was febrile on arrival to ER and treated, no complaints of flu like symptoms. Cardiovascular: HTN, hyperipidemia Renal/: Benign prostatic enlarg. Past Surgical History: TURP Smoke: No ALCOHOL: none Drugs: None Lives: with Family Domestic Violence: Neg Review of Systems Constitutional: No: Fever, Chills, Sweats, Weakness, Malaise, Other Eyes: No: Pain, Vision change, Conjunctivae inflammation, Eyelid inflammation, Other, Redness ENT: No: Ear pain, Ear discharge, Nose pain, Nose discharge, Nose congestion, Mouth pain, Mouth swelling, Throat pain, Throat swelling, Other Respiratory: No: Cough, Dry, Shortness of breath, SOB with excertion, Wheezing, Hemoptysis, Pleuritic Pain, Sputum, Wheezing, Other Cardiovascular: No: Chest Pain, Palpitations, Orthopnea, Paroxysmal Noc. Dyspnea, Edema, Lt Headedness, Other Gastrointestinal: No: Nausea, Vomiting, Abdominal Pain, Diarrhea, Constipation, Melena, Hematochezia, Other Genitourinary: No Dysuria, No Frequency, No Incontinence, No Hematuria, No Retention, No Other Musculoskeletal: leg pain (left); No: other, neck pain, shoulder pain, arm pain, back pain, hand pain, foot pain Skin: No: Rash, Lesions, Jaundice, Bruising, Other Neurological: Incoordination, Confusion; No: Weakness, Numbness, Change in spe ech, Seizures, Other Allergies: Coded Allergies: NO KNOWN ALLERGIES (Unverified , 05/25/22) Exam Vital Signs Vital Signs Date Time Temp Pulse Resp B/P (MAP) Pulse Ox O2 Delivery O2 Flow Rate FiO2 12/09/24 06:00 69 11 127/69 (88) 97 12/09/24 05:14 98.4 98.4 12/09/24 05:13 Nasal Cannula* 2 28 General Appearance: Alert, Cooperative, mild distress, Other (Oriented x 1, unclear on situation, place, and date) HEENT: Atraumatic, PERRLA, Mucous membr. moist/pink Respiratory: Clear to auscultation, Normal air movement Cardiovascular: Regular rate, Normal S1, Normal S2 Abdominal: Normal bowel sounds, Soft, No tenderness Extremities: No clubbing, No cyanosis, Normal pulses Skin: No rashes, No breakdown, No significant lesion Psych/Mental Status: Mental status NL, Mood NL Labs/Xrays Labs Test 12/09/24 05:35 12/09/24 01:13 12/08/24 23:42 12/08/24 23:29 Range/Units Urine Color Yellow Yellow Urine Clarity Clear Clear Urine pH 6.5 5.0-9.0 Urine Specific [place] 1.024 1.001-1.035 Urine Protein Trace H Negative Urine Ketones Negative Negative Urine Blood Negative Negative /uL Urine Nitrite Negative Negative Urine Bilirubin Negative Negative Urine Urobilinogen Normal Negative mg/dL Urine Leukocyte Esterase Negative Negative /uL Urine RBC 6 0 - 3 /hpf Urine Microscopic WBC 1 0-3 /HPF Urine Squamous Epithelial Cells Few <5 /hpf Urine Bacteria None seen None Seen /hpf Urine Mucus Few None Seen Urine Glucose Normal Normal mg/dL Urine Opiates Screen Neg NEGATIVE Urine Fentanyl Screen Neg NEGATIVE Urine Barbiturates Screen Neg NEGATIVE Urine Phencyclidine Screen Neg NEGATIVE Urine Amphetamines Screen Neg NEGATIVE Urine Benzodiazepines Screen Neg NEGATIVE Urine Cocaine Screen Neg NEGATIVE Urine Cannabinoids Screen Neg NEGATIVE Troponin I High Sensitivity 12 </=54 ng/L White Blood Count 4.4 4.4-10.8 10^3/uL Red Blood Count 4.04 L 4.5-5.90 10^6/uL Hemoglobin 13.1 L 13.5-17.5 g/dL Hematocrit 38.1 L 41.0-53.0 % Mean Corpuscular Volume 94.2 80.0-100.0 fL Mean Corpuscular Hemoglobin 32.5 H 28.0-32.0 pg Mean Corpuscular Hemoglobin Concent 34.5 32.0-36.0 g/dL Red Cell Distribution Width 13.6 11.8-14.3 % Platelet Count 102 L 140-450 10^3/uL Mean Platelet Volume 9.8 6.9-10.8 fL Neutrophils (%) (Auto) 81.6 H 37.0-80.0 % Lymphocytes (%) (Auto) 7.2 L 10.0-50.0 % Monocytes (%) (Auto) 10.1 0.0-12.0 % Eosinophils (%) (Auto) 0.9 0.0-7.0 % Basophils (%) (Auto) 0.2 0.0-2.0 % Neutrophils # (Auto) 3.6 1.6-8.6 10 ^3/uL Lymphocytes # (Auto) 0.3 L 0.4-5.4 10 ^3/uL Monocytes # (Auto) 0.4 0-1.3 10 ^3/uL Eosinophils # (Auto) 0 0-0.8 10 ^3/uL Basophils # (Auto) 0 0-0.2 10 ^3/uL Nucleated Red Blood Cells 0.1 % Prothrombin Time 11.2 9.3-11.8 sec Prothrombin Time INR 1.06 0.9-1.15 Activated Partial Thromboplast Time 30.2 24.5-34.5 SEC Sodium Level 137 136-145 mmol/L Potassium Level 3.1 L 3.5-5.1 mmol/L Chloride Level 102 98-107 mmol/L Carbon Dioxide Level 28 20-31 mmol/L Anion Gap 7 5-15 Blood Urea Nitrogen 14 9-23 mg/dL Creatinine 0.72 0.700-1.30 mg/dL Glomerular Filtration Rate Calc 93 >90 mL/min BUN/Creatinine Ratio 19.4 10.0-20.0 Serum Glucose 107 H 74-106 mg/dL Lactic Acid Level 0.9 0.4-2.0 mmol/L Calcium Level 9.6 8.7-10.4 mg/dL Total Bilirubin 0.8 0.2-1.0 mg/dL Aspartate Amino Transferase (AST) 24 13-40 U/L Alanine Aminotransferase (ALT) 25 7-40 U/L Alkaline Phosphatase 76 46-116 U/L Total Protein 7.3 5.7-8.2 g/dL Albumin 4.2 3.2-4.8 g/dL Plasma/Serum Blood Alcohol < 3.0 <10 mg/dL POC Glucose 104 70-106 mg/dl Influenza Type A Antigen Negative Negative Influenza Type B Antigen Negative Negative SARS-CoV-2 Antigen (Rapid) Negative NEGATIVE EXAM: CT HEAD WITHOUT CONTRAST FINDINGS: There is no evidence of acute intracranial hemorrhage, extra-axial collection, mass effect, midline shift, herniation or hydrocephalus. Left cerebellar , left lower anterior frontal lobe and right parietal encephalomalacia. The ventricles, sulci and cisterns are age appropriate. The carvajal-white differentiation is intact. Patchy periventricular and subcortical white matter hypoattenuation is nonspecific but may be related to small vessel ischemic disease. The visualized paranasal sinuses and mastoid air cells are clear. The surrounding soft tissues and osseous structures are unremarkable. IMPRESSION: No acute intracranial abnormality. CHEST RADIOGRAPH FINDINGS: Lines and Tubes: None Lungs: Clear Pleura: No effusion. No pneumothorax. Cardiomediastinal contours: Unremarkable Bones: Unremarkable IMPRESSION: No acute disease. Assessment/Plan Assessment/Plan Assessment: Metabolic encephalopathy, Hypokalemia, Hypertension, Febrile, Plan: Admit to Tele, Manage/Monitor electrolytes, Blood cultures, IV antibiotics, Home medications reviewed, waiting on family to go over medication list, Plan discussed with: Patient My Orders Orders - TEE PATTON Procedure Category Date Status Time Admit ADMIT 12/09/24 Verified 07:47 Code Status CODE 12/09/24 Verified 07:47 2 Gm Sodium Diet DIET 12/09/24 Verified Breakfast Sodium Chloride Lock PHA 12/09/24 Verified (Saline Lock Ns) 14:00 Hydrocodone-Acet PHA 12/09/24 Verified 5/325mg Tab ([place] 08:00 Ondansetron Hcl PHA 12/09/24 Verified (Zofran) 08:00 Docusate Sodium PHA 12/09/24 Verified Capsule (Colace 08:00 Fall Risk Precautions NALINI 12/09/[address] 07:47 Complete Blood Count LAB 12/10/24 Verified 04:00 Comprehensive LAB 12/10/24 Verified Metabolic Panel 04:00 Pt Request For Service PT 12/09/24 Verified 07:47 Condition: Serious NALINI 12/09/24 Verified 07:47 Acetaminophen Tablet PHA 12/09/24 Verified (Tylenol Tablet) 08:00 Nitroglycerin PHA 12/09/24 Verified Sublingual (Ntrostat 08:00 Morphine Sulfate PHA 12/09/24 Verified Injection 08:00 Stat Ekg For Chest NALINI 12/09/24 Verified Pain 07:47 Notify Md Of Changes NALINI 12/09/24 Verified From Base 07:47 Nurse Healthcare Manager For [facility] 12/09/24 Verified 24 Hours 07:47 Emergency Dysrhythmia [facility] 12/09/24 Verified Protocol 07:47 Rhythm Strips Once [facility] 12/09/24 Verified Every Shift 07:47 Oxygen By Nasal RT 12/09/24 Verified Cannula 07:47 Potassium LAB 12/09/24 Verified 07:47 Magnesium LAB 12/09/24 Verified 07:47 Date of Service: Dec 09, 2024 Billing Provider: TEE PATTON Common Visit Codes: [id number] INP/OBS CARE (MOD) TEE PATTON Dec 09, 2024 08:09
[2024-12-09 09:16] LABS: Magnesium 2.1 mg/dL (1.6-2.6)
[2024-12-09 09:19] LABS: Potassium 3.4 mmol/L (3.5-5.1)
[2024-12-09] MEDS: ASPirin 81 mg TAB PO SCH (11:21)
[2024-12-09] MEDS: METOPROLOL TARTRATE 50 MG TAB PO SCH (11:22)
[2024-12-09] MEDS: MAGNESIUM SULFATE 1GM/100ML 100 ML IV SCH (11:23)
[2024-12-09] MEDS: POTASSIUM EFFERVESENT TAB 25 MEQ PO ONE (11:49)
[2024-12-09] MEDS: SODIUM CHLOR 0.9% PF (SALINE LOCK) 10ML VIAL/SYR IV SCH (14:06)
--- NOTE | 2024-12-09 14:48 | DVHPN2 ---
Subjective altered mental status and left leg pain per family Reviewed: Care Plan, H&P, Labs, Medications, Previous Orders, Radiology Changes from previous H/P or p: No Changes Eyes: No Pain, No Vision change, No Conjunctivae inflammation, No Eyelid inflammation, No Other, No Redness ENT: No Ear pain, No Ear discharge, No Nose pain, No Nose discharge, No Nose congestion, No Mouth pain, No Mouth swelling, No Throat pain, No Throat swelling, No Other Cardiovascular: No Chest Pain, No Palpitations, No Orthopnea, No Paroxysmal Noc. Dyspnea, No Edema, No Lt Headedness, No Other Respiratory: No Cough, No Dry, No Shortness of breath, No SOB with excertion, No Wheezing, No Hemoptysis, No Pleuritic Pain, No Sputum, No Other Gastrointestinal: No Nausea, No Vomiting, No Abdominal Pain, No Diarrhea, No Constipation, No Melena, No Hematochezia, No Other Genitourinary: No Dysuria, No Frequency, No Incontinence, No Hematuria, No Retention, No Other Musculoskeletal: leg pain Skin: No Rash, No Lesions, No Jaundice, No Bruising, No Other Objective Vitals Vital Signs Date Time Temp Pulse Resp B/P (MAP) Pulse Ox O2 Delivery O2 Flow Rate FiO2 12/09/24 12:36 62 158/84 12/09/24 12:00 19 92 12/09/24 07:30 Nasal Cannula* 2 28 12/09/24 07:30 98.5 98.5 Exam per family patient seems more confused than normal is not following certain instructions also Asians family states having left leg pain. General Appearance: Alert (Nose name and date of unable to tell me situation or location), Cooperative, No acute distress, Other (Confused) HEENT: PERRLA Lungs: Clear to auscultation Cardiovascular: Regular rate Abdomen: Normal bowel sounds Musculoskeletal: Weak motor strength LUE (Left-sided deficits post CVA), Weak motor strength LLE (Left-sided deficits post CVA) Extremities: Other (Left lower extremity edema with redness also with tenderness on palpation) Neuro: Other (Difficulty ambulating) Skin: Dry, Intact, Other (Bilateral lower extremity dry skin flakky ) Psych/Mental Status: Mental status NL Medications Current Medications Medications Dose Ordered Sig/Mauro Route Start Time Stop Time Status Last Admin Dose Admin Sodium Chloride 10 ml Q8HR IV 12/09/24 14:00 12/09/24 14:06 10 ML Acetaminophen/ Hydrocodone Bitart 1 tab Q4HP PRN PO 12/09/24 08:00 Ondansetron HCl 4 mg Q4HP PRN IV 12/09/24 08:00 Docusate Sodium 100 mg BIDPRN PRN PO 12/09/24 08:00 Acetaminophen 650 mg Q6HP PRN PO 12/09/24 08:00 Nitroglycerin 0.4 mg Q5MINP PRN SL 12/09/24 08:00 Morphine Sulfate 2 mg Q30M PRN IV 12/09/24 08:00 Metoprolol Tartrate 50 mg BID PO 12/09/24 10:00 12/09/24 11:22 50 MG Tamsulosin HCl 0.4 mg HS PO 12/09/24 22:00 Aspirin 81 mg DAILY PO 12/09/24 10:00 12/09/24 11:21 81 MG Laboratory Results Laboratory Tests 12/08/24 23:42 12/09/24 08:10 Chemistry Test 12/08/24 23:42 12/09/24 08:10 Albumin 4.2 g/dL (3.2-4.8) Calcium Level 9.6 mg/dL (8.7-10.4) Total Protein 7.3 g/dL (5.7-8.2) Magnesium Level 2.1 mg/dL (1.6-2.6) Coagulation Test 12/08/24 23:42 Prothrombin Time 11.2 sec (9.3-11.8) Prothrombin Time INR 1.06 (0.9-1.15) Activated Partial Thromboplast Time 30.2 SEC (24.5-34.5) LFT Test 12/08/24 23:42 Alanine Aminotransferase (ALT) 25 U/L (7-40) Alkaline Phosphatase 76 U/L (46-116) Aspartate Amino Transferase (AST) 24 U/L (13-40) Total Bilirubin 0.8 mg/dL (0.2-1.0) Urinalysis Test 12/09/24 05:35 Urine Color Yellow (Yellow) Urine Clarity Clear (Clear) Urine pH 6.5 (5.0-9.0) Urine Specific [place] 1.024 (1.001-1.035) Urine Protein Trace (Negative) H Urine Ketones Negative (Negative) Urine Blood Negative /uL (Negative) Urine Nitrite Negative (Negative) Urine Bilirubin Negative (Negative) Urine Urobilinogen Normal mg/dL (Negative) Urine Leukocyte Esterase Negative /uL (Negative) Urine RBC 6 /hpf (0 - 3) Urine Microscopic WBC 1 /HPF (0-3) Urine Squamous Epithelial Cells Few /hpf (<5) Urine Bacteria None seen /hpf (None Seen) Urine Mucus Few (None Seen) Urine Glucose Normal mg/dL (Normal) Labs and/or images reviewed: Labs reviewed by me, Image(s) reviewed by me Assessment/Plan Assessment/Plan 79-year-old male with past medical history of hypertension, hyperlipidemia, CVA with left sided weakness, BPH,Alzheimer who was brought to the ER for altered level of conciseness not following instructions having issues with mobility, including not able to move the left leg or left arm. Patient has a history of CVA with left-sided deficits. Left eye blindness cataracts status post cataract surgery. Surgical- T[facility]P Spoke with the son on the telephone today nursing staff was having issues contacting the family as the number provided was disconnected. Updated phone number [phone] , [phone] had detail conversation in regards to the chief complaint that led up to the admission patient lives at home with and son family states denies any fever, cough, sickness, abdominal, pain, nausea, vomiting, diarrhea. Patient has been seen out patient physician Dr. Ortega neurologist for Alzheimer's started new medication in October of 2024 memantine started on low dose but has not started the full dose course yet. was waiting for follow up appointment. As per son patient is normally was able to follow instructions knows name and and year but hes forgetful on location. now is seems little bit more confused than normal not follow instructions for example not moving left leg or left arm ability has decreased usually uses a walker at home. Also family states left leg swelling but has had an issue before no history of DVTs. impression: - acute metabolic encephalopathy -altered mental status -hypokalemia -hypomagnesium -bed bound status -Alzheimer -CVA 3 years ago -left lower leg edema with redness rule out cellulitis versus DVT plan: -Daily CBC CMP -Ultrasound of lower extremity possible DVT -monitor I/o -f/u check electrolytes -prophylaxis DVT -cardiac diet -neuro consult Plan discussed with: Son, Other (nurse) Date of Service: Dec 09, 2024 Billing Provider: ERIC NEVILLE HEALTH CARE ADMINISTRATOR Common Visit Codes: [id number] INP/OBS CARE(MOD) KALPANA PINON STUDENT HEALTH CARE ADMINISTRATOR Dec 09, 2024 14:47
--- NOTE | 2024-12-09 16:05 | DVH ---
LEFT LOWER EXTREMITY VENOUS DOPPLER CLINICAL HISTORY: left leg swelling / redness TECHNIQUE: Left lower extremity venous Doppler study was performed. COMPARISON: None FINDINGS: The left common femoral, superficial femoral, popliteal, posterior tibial veins and trifurcation appe ar patent with normal augmentation, phasicity, compressibility and color-flow. . IMPRESSION: 1. No sonographic evidence of DVT in the left leg. HS:Y
[2024-12-09 21:00] VITALS: PULSE 79; RESP 30; O2SAT 96
[2024-12-09 21:31] VITALS: PULSE 73; RESP 16; O2SAT 95
[2024-12-09] MEDS ORDERED: LISI-283 PO (21:36)
[2024-12-09] MEDS: TAMSULOSIN HYDROCHLORIDE 0.4 MG CAP PO SCH (23:20)
[2024-12-09] MEDS: HYDROcodone-ACET 5/325MG TAB PO PRN (23:23)
[2024-12-10] VITALS (8 sets, daily range): BP systolic 138–150; BP diastolic 69–99; PULSE 60–78; RESP 16–19; TEMP 98.5–102.7; O2SAT 91–97
[2024-12-10 06:18] LABS: Basophils # (auto) 0 10 ^3/uL (0-0.2); Basophils % (auto) 0.6 % (0.0-2.0); Eosinophils # (auto) 0 10 ^3/uL (0-0.8); Hematocrit 35.3 % (41.0-53.0); Hemoglobin 12.3 g/dL (13.5-17.5); Lymphocytes # (auto) 0.8 10 ^3/uL (0.4-5.4); Lymphocytes % (auto) 19.3 % (10.0-50.0); Mean Corpuscular Hemoglobin 32.6 pg (28.0-32.0); Mean Corpuscular Hgb Conc. 34.9 g/dL (32.0-36.0); Mean Corpuscular Volume 93.5 fL (80.0-100.0); Monocytes # (auto) 0.5 10 ^3/uL (0-1.3); Monocytes % (auto) 10.5 % (0.0-12.0); Neutrophils % (auto) 69.6 % (37.0-80.0); Nucleated Red Blood Cells % 0.1 %; Platelet Count (auto) 84 10^3/uL (140-450); Red Blood Cells 3.78 10^6/uL (4.5-5.90); White Blood Cell 4.4 10^3/uL (4.4-10.8)
[2024-12-10 06:38] LABS: Alanine Aminotransferase 28 U/L (7-40); Albumin 3.6 g/dL (3.2-4.8); Alkaline Phosphatase 65 U/L (46-116); Anion Gap 7 (5-15); Aspartate Aminotransferase 34 U/L (13-40); BUN/Creatinine Ratio 16.5 (10.0-20.0); Blood Urea Nitrogen 13 mg/dL (9-23); Calcium 8.8 mg/dL (8.7-10.4); Carbon Dioxide 29 mmol/L (20-31); Chloride 102 mmol/L (98-107); Potassium 3.6 mmol/L (3.5-5.1); Sodium 138 mmol/L (136-145)
[2024-12-10 06:39] LABS: Bilirubin, Total 0.6 mg/dL (0.2-1.0); Total Protein 6.4 g/dL (5.7-8.2)
[2024-12-10 06:41] LABS: Glucose 111 mg/dL (74-106)
[2024-12-10 06:49] LABS: CRP High Sensitivity 4.16 mg/dL (<1.0)
--- NOTE | 2024-12-10 11:04 | DVHPN2 ---
Subjective Patient reports having left hip pain. Reviewed: Care Plan, H&P, Labs, Medications, Previous Orders, Radiology Changes from previous H/P or p: No Changes Eyes: No Pain, No Vision change, No Conjunctivae inflammation, No Eyelid inflammation, No Other, No Redness ENT: No Ear pain, No Ear discharge, No Nose pain, No Nose discharge, No Nose congestion, No Mouth pain, No Mouth swelling, No Throat pain, No Throat swelling, No Other Cardiovascular: No Chest Pain, No Palpitations, No Orthopnea, No Paroxysmal Noc. Dyspnea, No Edema, No Lt Headedness, No Other Respiratory: No Cough, No Dry, No Shortness of breath, No SOB with excertion, No Wheezing, No Hemoptysis, No Pleuritic Pain, No Sputum, No Other Gastrointestinal: No Nausea, No Vomiting, No Abdominal Pain, No Diarrhea, No Constipation, No Melena, No Hematochezia, No Other Genitourinary: No Dysuria, No Frequency, No Incontinence, No Hematuria, No Retention, No Other Musculoskeletal: leg pain Skin: No Rash, No Lesions, No Jaundice, No Bruising, No Other Objective Vitals Vital Signs Date Time Temp Pulse Resp B/P (MAP) Pulse Ox O2 Delivery O2 Flow Rate FiO2 12/10/24 10:47 68 150/99 12/10/24 08:29 98.9 18 91 98.9 12/09/24 21:31 Nasal Cannula* 2 28 Intake/Output Intake and Output 12/10/24 07:00 Intake Total 1300 ml Output Total 1850 ml Balance -550 ml Intake Oral 100 ml IV Total 1200 ml Output Urine Total 1850 ml General Appearance: Alert (Nose name and date of unable to tell me situation or location), Cooperative, No acute distress, Other (Confused) HEENT: PERRLA Lungs: Clear to auscultation Cardiovascular: Regular rate Abdomen: Normal bowel sounds Musculoskeletal: Weak motor strength LUE (Left-sided deficits post CVA), Weak motor strength LLE (Left-sided deficits post CVA) Extremities: Other (Left lower extremity edema with redness also with tenderness on palpation) Neuro: Other (Difficulty ambulating) Skin: Dry, Intact, Other (Bilateral lower extremity dry skin flakky ) Psych/Mental Status: Mental status NL Medications Current Medications Medications Dose Ordered Sig/Mauro Route Start Time Stop Time Status Last Admin Dose Admin Sodium Chloride 10 ml Q8HR IV 12/09/24 14:00 12/10/24 06:00 10 ML Acetaminophen/ Hydrocodone Bitart 1 tab Q4HP PRN PO 12/09/24 08:00 12/10/24 10:47 1 TAB Ondansetron HCl 4 mg Q4HP PRN IV 12/09/24 08:00 Docusate Sodium 100 mg BIDPRN PRN PO 12/09/24 08:00 Acetaminophen 650 mg Q6HP PRN PO 12/09/24 08:00 Nitroglycerin 0.4 mg Q5MINP PRN SL 12/09/24 08:00 Morphine Sulfate 2 mg Q30M PRN IV 12/09/24 08:00 Metoprolol Tartrate 50 mg BID PO 12/09/24 10:00 12/10/24 10:47 50 MG Tamsulosin HCl 0.4 mg HS PO 12/09/24 22:00 12/09/24 23:20 0.4 MG Aspirin 81 mg DAILY PO 12/09/24 10:00 12/10/24 10:47 81 MG Piperacillin Sod/ Tazobactam Sod 100 ml @ 25 mls/hr Q8HR IV 12/10/24 14:00 Laboratory Results Laboratory Tests 12/10/24 04:48 Chemistry Test 12/10/24 04:48 Albumin 3.6 g/dL (3.2-4.8) Calcium Level 8.8 mg/dL (8.7-10.4) Total Protein 6.4 g/dL (5.7-8.2) LFT Test 12/10/24 04:48 Alanine Aminotransferase (ALT) 28 U/L (7-40) Alkaline Phosphatase 65 U/L (46-116) Aspartate Amino Transferase (AST) 34 U/L (13-40) Total Bilirubin 0.6 mg/dL (0.2-1.0) Urinalysis Test 12/09/24 05:35 Urine Color Yellow (Yellow) Urine Clarity Clear (Clear) Urine pH 6.5 (5.0-9.0) Urine Specific [place] 1.024 (1.001-1.035) Urine Protein Trace (Negative) H Urine Ketones Negative (Negative) Urine Blood Negative /uL (Negative) Urine Nitrite Negative (Negative) Urine Bilirubin Negative (Negative) Urine Urobilinogen Normal mg/dL (Negative) Urine Leukocyte Esterase Negative /uL (Negative) Urine RBC 6 /hpf (0 - 3) Urine Microscopic WBC 1 /HPF (0-3) Urine Squamous Epithelial Cells Few /hpf (<5) Urine Bacteria None seen /hpf (None Seen) Urine Mucus Few (None Seen) Urine Glucose Normal mg/dL (Normal) Labs and/or images reviewed: Labs reviewed by me, Image(s) reviewed by me Assessment/Plan Assessment/Plan Impression: -metabolic encephalopathy -history of CVA -left hip pain, rule out acute pathology -left hemiparesis -primary hypertension -dyslipidemia -patient noted to be febrile with elevated CRP. Rule out acute infection Plan: -start empiric antibiotic therapy with Zosyn -aslinas cultures -left hip x-ray -continue home medications for hypertension and dyslipidemia -repeat labs in a.m. Total time spent with patient discussing and formulating plan of care: 35 minutes. This medical document was created using an electronic medical record system with [employer] dictation system. Although this document has been carefully reviewed, there may still be some phonetic and typographical errors. These areas are purely typographical due to imperfections of the software programs, and do not reflect any compromise in the patient's medical care. Plan discussed with: Patient, Other (RN) My Orders Orders - ERIC NEVILLE NP Procedure Category Date Status Time Lt Lower Dvt US 12/09/24 Resulted 15:04 Urine Bacterial LILLY 12/10/24 Logged Culture 09:45 Piperacillin-Tazob PHA 12/10/24 In Process 3.375gm (Zosyn 3.375g 14:00 L Hip Complete Xray XY 12/10/24 Transmitted 11:00 Date of Service: Dec 10, 2024 Billing Provider: ERIC NEVILLE NP Common Visit Codes: [id number] INP/OBS CARE(HIGH) ERIC NEVILLE NP Dec 10, 2024 11:04
[2024-12-10] MEDS: PIPERACILLIN-TAZOB 3.375GM 100 ML IV SCH (14:00)
--- NOTE | 2024-12-10 14:07 | DVH ---
CLINICAL INDICATION: hip pain TECHNIQUE: 1 radiographic views of the pelvis and 2 views of the left hip were obtained. Comparison: None FINDINGS/IMPRESSION: There is no evidence of acute fracture or dislocation. 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 There is no radiopaque foreign body.
[2024-12-11] VITALS (8 sets, daily range): BP systolic 137–179; BP diastolic 82–92; PULSE 60–76; RESP 17–20; TEMP 98.6–99.7; O2SAT 94–97
[2024-12-11] MEDS: CELECOXIB 100 MG CAP PO SCH (10:45)
[2024-12-11] MEDS ORDERED: CEL100T PO (11:00)
[2024-12-11] MEDS ORDERED: LEVO500T91 PO (11:00)
--- NOTE | 2024-12-11 11:08 | DVHDS2 ---
Discharge Summary Date of Admission Dec 09, 2024 at 07:47 Date of Discharge: Dec 11, 2024 Admitting Diagnosis Metabolic encephalopathy Labs/Diagnostic Data: Laboratory Results Test 12/10/24 04:48 12/09/24 18:11 12/09/24 08:10 12/09/24 05:35 White Blood Count 4.4 10^3/uL (4.4-10.8) Red Blood Count 3.78 10^6/uL (4.5-5.90) Hemoglobin 12.3 g/dL (13.5-17.5) Hematocrit 35.3 % (41.0-53.0) Mean Corpuscular Volume 93.5 fL (80.0-100.0) Mean Corpuscular Hemoglobin 32.6 pg (28.0-32.0) Mean Corpuscular Hemoglobin Concent 34.9 g/dL (32.0-36.0) Red Cell Distribution Width 14.0 % (11.8-14.3) Platelet Count 84 10^3/uL (140-450) Mean Platelet Volume 10.8 fL (6.9-10.8) Neutrophils (%) (Auto) 69.6 % (37.0-80.0) Lymphocytes (%) (Auto) 19.3 % (10.0-50.0) Monocytes (%) (Auto) 10.5 % (0.0-12.0) Eosinophils (%) (Auto) 0.0 % (0.0-7.0) Basophils (%) (Auto) 0.6 % (0.0-2.0) Neutrophils # (Auto) 3.0 10 ^3/uL (1.6-8.6) Lymphocytes # (Auto) 0.8 10 ^3/uL (0.4-5.4) Monocytes # (Auto) 0.5 10 ^3/uL (0-1.3) Eosinophils # (Auto) 0 10 ^3/uL (0-0.8) Basophils # (Auto) 0 10 ^3/uL (0-0.2) Nucleated Red Blood Cells 0.1 % Sodium Level 138 mmol/L (136-145) Potassium Level 3.6 mmol/L (3.5-5.1) Chloride Level 102 mmol/L (98-107) Carbon Dioxide Level 29 mmol/L (20-31) Anion Gap 7 (5-15) Blood Urea Nitrogen 13 mg/dL (9-23) Creatinine 0.79 mg/dL (0.700-1.30) Glomerular Filtration Rate Calc 90 mL/min (>90) BUN/Creatinine Ratio 16.5 (10.0-20.0) Serum Glucose 111 mg/dL (74-106) Calcium Level 8.8 mg/dL (8.7-10.4) Total Bilirubin 0.6 mg/dL (0.2-1.0) Aspartate Amino Transferase (AST) 34 U/L (13-40) Alanine Aminotransferase (ALT) 28 U/L (7-40) Alkaline Phosphatase 65 U/L (46-116) C-Reactive Protein High Sensitivity 4.16 mg/dL (<1.0) Total Protein 6.4 g/dL (5.7-8.2) Albumin 3.6 g/dL (3.2-4.8) POC Glucose 106 mg/dl (70-106) Magnesium Level 2.1 mg/dL (1.6-2.6) Urine Color Yellow (Yellow) Urine Clarity Clear (Clear) Urine pH 6.5 (5.0-9.0) Urine Specific [place] 1.024 (1.001-1.035) Urine Protein Trace (Negative) Urine Ketones Negative (Negative) Urine Blood Negative /uL (Negative) Urine Nitrite Negative (Negative) Urine Bilirubin Negative (Negative) Urine Urobilinogen Normal mg/dL (Negative) Urine Leukocyte Esterase Negative /uL (Negative) Urine RBC 6 /hpf (0 - 3) Urine Microscopic WBC 1 /HPF (0-3) Urine Squamous Epithelial Cells Few /hpf (<5) Urine Bacteria None seen /hpf (None Seen) Urine Mucus Few (None Seen) Urine Glucose Normal mg/dL (Normal) Urine Opiates Screen Neg (NEGATIVE) Urine Fentanyl Screen Neg (NEGATIVE) Urine Barbiturates Screen Neg (NEGATIVE) Urine Phencyclidine Screen Neg (NEGATIVE) Urine Amphetamines Screen Neg (NEGATIVE) Urine Benzodiazepines Screen Neg (NEGATIVE) Urine Cocaine Screen Neg (NEGATIVE) Urine Cannabinoids Screen Neg (NEGATIVE) Test 12/09/24 01:13 12/08/24 23:42 12/08/24 23:29 Troponin I High Sensitivity 12 ng/L (</=54) Prothrombin Time 11.2 sec (9.3-11.8) Prothrombin Time INR 1.06 (0.9-1.15) Activated Partial Thromboplast Time 30.2 SEC (24.5-34.5) Lactic Acid Level 0.9 mmol/L (0.4-2.0) Plasma/Serum Blood Alcohol < 3.0 mg/dL (<10) Influenza Type A Antigen Negative (Negative) Influenza Type B Antigen Negative (Negative) SARS-CoV-2 Antigen (Rapid) Negative (NEGATIVE) Other Laboratory Tests 12/10/24 04:48 Brief Hx & Hospital Course: History of Present Illness Nixon Shafer is a 79-year-old male with past medical history of hypertension, hyperlipidemia, CVA with left sided weakness, BPH, who was brought to the ER for altered level of conciseness. Patient is unable to provide much history. There is no family at the bedside, and the phone number in the chart is not working. Per ER documentation, the family called EMS due to patient becoming more confused, having difficulty following commands, and difficulty ambulating. Patient was febrile on arrival to ER and treated, no complaints of flu like symptoms. Course of hospitalization: Patient has had normal white blood cell count. Mild elevation in CRP. Patient denies any symptoms. Left lower extremity was scan for rule out DVT given swelling. Patient did report having left hip pain, for which three-view hip x- ray was performed which revealed no fracture, DJD was noted. Long discussion was made with the patient's son, Kleber regarding all findings. He was agreeable for the patient to be discharged home and continue current medications as well as Levaquin 500 mg p.o. for additional five days for treatment of questionable infection given his elevated CRP as well as intermittent fevers. Patient will be placed on a trial of Celebrex for his left hip pain given his ambulation has worsened according to the son. Patient will follow up with his PCP Dr. Seay in the next 1-2 weeks. All questions answered. Physical examination General: Alert and Oriented x3. No acute distress. Well-nourished. Eyes: EOMI. Anicteric. HENT: Moist mucous membranes. Lungs: Clear to auscultation bilaterally. No accessory muscle use. Cardiovascular: Regular rate and rhythm. No murmur. No JVD. Abdomen: Soft, non-tender and non-distended. No palpable masses. Extremities: No edema. Non-tender. Skin: No rashes or lesions. Warm. Neurologic: No focal neurological deficits. CN II-XII grossly intact, but not individually tested. Psychiatric: Cooperative. Appropriate mood and affect. Total time spent with patient discussing and formulating plan of care: 35 minutes. This medical document was created using an electronic medical record system with [employer] dictation system. Although this document has been carefully reviewed, there may still be some phonetic and typographical errors. These areas are purely typographical due to imperfections of the software programs, and do not reflect any compromise in the patient's medical care. Condition at Discharge: Fair Final Diagnosis/Problems List Metabolic encephalopathy -metabolic encephalopathy -history of CVA -left hip pain, rule out acute pathology -left hemiparesis -primary hypertension -dyslipidemia -patient noted to be febrile with elevated CRP. Rule out acute infection Discharge Disposition: Home Discharge Instruct/Medications Diet: Cardiac 2g Na,low cholest Activity: No Restrictions, As Tolerated Follow Up/Referral: Follow up with PCP in 1-2 weeks Medications: Levaquin 500 mg p.o. daily x5 days 36 Discharge Statement: "Patient was advised to return to the ER or call 911 if any headaches, dizziness, shortness of breath, chest pain, abdominal pain, bleeding, fevers, or worsening of medical condition. Patient was counseled about treatment plan, medications, possible side effects, patientverbalized understanding. All questions were answered to the best of my ability. This discharge took greater then 30 minutes in planning, reviewing documentation, counseling the patient, and discussing with other team members." ASSESSMENT ASSESSMENT Assessment Metabolic encephalopathy Date of Service: Dec 11, 2024 Billing Provider: ERIC NEVILLE NP Common Visit Codes: [id number] CARE 30-74 MIN ERIC NEVILLE NP Dec 11, 2024 11:07
[2024-12-11] MEDS: cloNIDine HCL 0.1 MG TAB PO ONE (16:54)
== END 2024-12-11 19:54 | disposition home or self-care (01) | DRG 71 ==
LOC: ER 22:50 → TELE 12-09 07:47 → TELE-CENTR 12-09 07:54
PROVIDERS: ADMIT Nurse Practitioner Family; ATTEND Nurse Practitioner Acute Care
DX: G93.41 Metabolic encephalopathy (principal); I69.354 Hemiplegia and hemiparesis following cerebral infarction affecting left non-dominant side; E87.6 Hypokalemia; I10 Essential (primary) hypertension; E83.42 Hypomagnesemia; G30.9 Alzheimer's disease, unspecified; Z20.822 Contact with and (suspected) exposure to COVID-19; M25.552 Pain in left hip; F02.80 Dementia in other diseases classified elsewhere, unspecified severity, without behavioral disturbance, psychotic disturbance, mood disturbance, and anxiety; E78.5 Hyperlipidemia, unspecified; Z79.82 Long term (current) use of aspirin; Z79.899 Other long term (current) drug therapy; Z74.01 Bed confinement status
CPT/HCPCS: 36415; 70450; 71045; 73502; 80053; 80307; 80320; 81001; 82962; 83605; 83735; 84132; 84484; 85025; 85610; 85730; 86141; 87040; 87426; 87804; 93005; 93971; 96360; 97116; 97163; 97530; 99291; G0378; J2543

== ENCOUNTER → 2024-12-22 | Outpatient (CLI) | payer OTHER ==
[~2024-12-22] MED LIST changes: -AMLO1TAB22 PO; +CEL100T PO; -GABA-1308 PO; +LEVO500T91 PO; +LISI-283 PO; -LISI20TA56 PO
[2024-12-22 08:05] LABS: Urine Bacteria None Seen /hpf (None Seen)
[2024-12-22 08:29] LABS: Alanine Aminotransferase 27 U/L (7-40); Alkaline Phosphatase 77 U/L (46-116); Anion Gap 6 (5-15); Aspartate Aminotransferase 33 U/L (13-40); BUN/Creatinine Ratio 14.5 (10.0-20.0); Blood Urea Nitrogen 10 mg/dL (9-23); Calcium 9.4 mg/dL (8.7-10.4); Carbon Dioxide 31 mmol/L (20-31); Chloride 101 mmol/L (98-107); LDL Cholesterol 60 mg/dL (< 100); Sodium 138 mmol/L (136-145); Triglycerides 68 mg/dL (< 150)
[2024-12-22 08:30] LABS: Albumin 4.1 g/dL (3.2-4.8); Cholesterol 103 mg/dL (< 200); Total Protein 7.3 g/dL (5.7-8.2); Urine Blood Negative /uL (Negative); Urine Clarity Clear (Clear); Urine Color Light-Yellow (Yellow); Urine Protein, UAD Negative (Negative); Urine Specific Gravity 1.009 (1.001-1.035); Urine Squamous Epithelial Cell FEW /hpf (<5); Urine Urobilinogen Normal (Negative); Urine WBC < 1 /HPF (0-3); Urine pH 7.5 (5.0-9.0)
[2024-12-22 08:31] LABS: Glucose 114 mg/dL (74-106); HDL Cholesterol 28 mg/dL (40-59); Potassium 3.2 mmol/L (3.5-5.1)
[2024-12-22 08:40] LABS: Hematocrit 39.6 % (41.0-53.0); Hemoglobin 13.6 g/dL (13.5-17.5); Mean Corpuscular Hemoglobin 31.6 pg (28.0-32.0); Mean Corpuscular Hgb Conc. 34.4 g/dL (32.0-36.0); Mean Corpuscular Volume 91.8 fL (80.0-100.0); Platelet Count (auto) 214 10^3/uL (140-450); Red Blood Cells 4.31 10^6/uL (4.5-5.90); Red Cell Distribution Width 13.9 % (11.8-14.3); White Blood Cell 2.7 10^3/uL (4.4-10.8)
[2024-12-22 08:49] LABS: Band Neutrophils % (manual) 0; Basophils % (manual) 0 (0.0-2.0); Blast Cells 0; Metamyelocytes % 0; Myelocytes % 0; Promyelocytes % 0; Reactive Lymphocytes 0
[2024-12-22 08:54] LABS: Bilirubin, Total 1.2 mg/dL (0.2-1.0)
[2024-12-22 12:03] LABS: Eosinophils % (manual) 1 (0-7); Lymphocytes % (manual) 37 (10.0-50.0); Monocytes % (manual) 13 (0-12); Platelet Estimate Adequate
== END | disposition home or self-care (01) ==
LOC: LAB 07:52
PROVIDERS: ATTEND Student in an Organized Health Care Education/Training Program
DX: I10 Essential (primary) hypertension (principal); N40.0 Benign prostatic hyperplasia without lower urinary tract symptoms
CPT/HCPCS: 36415; 80053; 80061; 81001; 83036; 84153; 84443; 85007; 85027

== ENCOUNTER 2024-12-23 00:42 | Inpatient (IN) | payer OTHER ==
[~2024-12-23] VITALS: Ht 175.3 cm; Wt 71.9 kg
[2024-12-23 02:10] LABS: Alanine Aminotransferase 25 U/L (7-40); Albumin 3.6 g/dL (3.2-4.8); Alkaline Phosphatase 66 U/L (46-116); Anion Gap 8 (5-15); Aspartate Aminotransferase 28 U/L (13-40); BUN/Creatinine Ratio 26.5 (10.0-20.0); Blood Urea Nitrogen 18 mg/dL (9-23); Calcium 9.3 mg/dL (8.7-10.4); Carbon Dioxide 27 mmol/L (20-31); Chloride 103 mmol/L (98-107); Lipase 46 U/L (12-53); Sodium 138 mmol/L (136-145)
[2024-12-23 02:11] LABS: Bilirubin, Total 0.9 mg/dL (0.2-1.0); Total Protein 6.5 g/dL (5.7-8.2)
[2024-12-23 02:12] LABS: Glucose 157 mg/dL (74-106); Potassium 3.3 mmol/L (3.5-5.1)
[2024-12-23 02:17] LABS: Basophils # (auto) 0 10 ^3/uL (0-0.2); Basophils % (auto) 0.6 % (0.0-2.0); Eosinophils # (auto) 0 10 ^3/uL (0-0.8); Eosinophils % (auto) 0.5 % (0.0-7.0); Hematocrit 36.2 % (41.0-53.0); Lymphocytes # (auto) 1.8 10 ^3/uL (0.4-5.4); Lymphocytes % (auto) 30.8 % (10.0-50.0); Mean Corpuscular Hemoglobin 30.8 pg (28.0-32.0); Mean Corpuscular Volume 93.3 fL (80.0-100.0); Monocytes # (auto) 0.5 10 ^3/uL (0-1.3); Monocytes % (auto) 8.7 % (0.0-12.0); Neutrophils # (auto) 3.5 10 ^3/uL (1.6-8.6); Neutrophils % (auto) 59.4 % (37.0-80.0); Nucleated Red Blood Cells % 0.3 %; Platelet Count (auto) 207 10^3/uL (140-450); Red Blood Cells 3.88 10^6/uL (4.5-5.90)
--- NOTE | 2024-12-23 02:34 | ED.PDOC ---
GI ASSESSMENT HPI Comments 79-year-old male brought in by EMS. Caregivers called EMS because patient had bowel movement with large amount of blood and clots in his diaper. Patient does have a history of dementia and prior stroke. Patient is typically A& O 1-2. Patient denies any pain. Bloody bowel movement happened at approximately 11:00 p.m.. No prior cough or congestion no prior fever. Chief Complaint: GI Bleed Time Seen by MD: 01:04 Primary Care Provider: Danilok Reviewed Notes: Nurses Notes Allergies: Coded Allergies: NO KNOWN ALLERGIES (Unverified , 05/25/22) Home Meds Active Scripts Levofloxacin Hemihydrate (LEVAQUIN 500 MG) 500 Mg Tab, 1 TAB PO DAILY for 5 Days, #5 TAB Prov:ERIC NEVILLE MEDICAL EDUCATION MANAGER 12/11/24 Celecoxib (CeleBREX CAPSULE) 100 Mg Cp, 1 CAP PO BID for 20 Days, #40 CAP 3 Refills Prov:ERIC NEVILLE MEDICAL EDUCATION MANAGER 12/11/24 Reported Medications Lisinopril & Hydrochlorothiazi (Lisinopril/Hydrochlorothi) 1 Tab Tab, 1 TAB PO DAILY, TAB 12/09/24 Atorvastatin Calcium (Lipitor) 80 Mg Tab, 40 MG PO DAILY, TAB 09/11/23 Aspirin (Aspirin Low Dose) 81 Mg Chw, 81 MG PO DAILY, TAB.CHEW 09/11/23 Tamsulosin HCl (Tamsulosin Hydrochloride) 0.4 Mg Cap, 0.4 MG PO HS, CAP 09/11/23 Metoprolol Tartrate (LOPRESSOR TABLET) 50 Mg Tb, 50 MG PO BID, TAB 09/11/23 Information Source: Emergency Med Personnel Mode of Arrival: EMS Past Medical History PAST MEDICAL HISTORY: CVA, Dementia, HTN, UTI'S Family History Family History: Reviewed,noncontributory to illness Social History Smoker: Non-Smoker Alcohol: Denies ETOH Use Drugs: Denies Drug Use Lives In: Home, Assisted Care EENTM: denies: blurred vision, double vision, ear bleeding, ear discharge, ear drainage, ear pain, ear ringing, eye pain, eye redness, hearing loss, mouth pain, mouth swelling, nasal discharge, nose bleeding, nose congestion, nose pain, photophobia, tearing, throat pain, throat swelling, voice changes, others Unable to Obtain due to: Altered Mental Status Physical Exam General Appearance: No Apparent Distress, Normal HEENT: Normal ENT Inspection, Pharynx Normal, TMs Normal Neck: Full Range of Motion, Non-Tender, Normal, Normal Inspection Respiratory: Chest Non-Tender, Lungs Clear, No Accessory Muscle Use, No Respiratory Distress, Normal Breath Sounds Cardiovascular: No Edema, No JVD, No Murmur, No Gallop, Normal Peripheral Pulses, Regular Rate/Rhythm Breast Exam: Deferred Gastrointestinal: No Organomegaly, Non Tender, No Pulsatile Mass, Normal Bowel Sounds, Soft Genitalia: Deferred Pelvic: Deferred Rectal: Deferred Extremities: No calf tenderness, Normal capillary refill, Normal inspection, Normal range of motion, Non-tender, No pedal edema Musculoskeletal : Apperance: Normal Neurologic: Alert, NOT DONE Cerebellar Function: Normal Reflexes: Normal Skin: Dry, Normal Color, Warm Lymphatic: No Adenopathy Was a procedure done? Was a procedure done?: No GI differential Dx Differential Diagnosis: Gastritis/PUD, Gastroenteritis, GI hemorrhage X-Ray, Labs, Meds, VS Vital Signs Date Time Temp Pulse Resp B/P (MAP) Pulse Ox O2 Delivery O2 Flow Rate FiO2 12/23/24 00:54 74 12/23/24 00:45 97.8 73 18 151/95 (113) 97 Lab Test 12/23/24 01:24 Range/Units White Blood Count 6.0 # 4.4-10.8 10^3/uL Red Blood Count 3.88 L 4.5-5.90 10^6/uL Hemoglobin 12.0 L 13.5-17.5 g/dL Hematocrit 36.2 L 41.0-53.0 % Mean Corpuscular Volume 93.3 80.0-100.0 fL Mean Corpuscular Hemoglobin 30.8 28.0-32.0 pg Mean Corpuscular Hemoglobin Concent 33.0 32.0-36.0 g/dL Red Cell Distribution Width 14.0 11.8-14.3 % Platelet Count 207 140-450 10^3/uL Mean Platelet Volume 10.3 6.9-10.8 fL Neutrophils (%) (Auto) 59.4 37.0-80.0 % Lymphocytes (%) (Auto) 30.8 10.0-50.0 % Monocytes (%) (Auto) 8.7 0.0-12.0 % Eosinophils (%) (Auto) 0.5 0.0-7.0 % Basophils (%) (Auto) 0.6 0.0-2.0 % Neutrophils # (Auto) 3.5 1.6-8.6 10 ^3/uL Lymphocytes # (Auto) 1.8 0.4-5.4 10 ^3/uL Monocytes # (Auto) 0.5 0-1.3 10 ^3/uL Eosinophils # (Auto) 0 0-0.8 10 ^3/uL Basophils # (Auto) 0 0-0.2 10 ^3/uL Nucleated Red Blood Cells 0.3 % Prothrombin Time 11.0 9.3-11.8 sec Prothrombin Time INR 1.04 0.9-1.15 Activated Partial Thromboplast Time 27.3 24.5-34.5 SEC Sodium Level 138 136-145 mmol/L Potassium Level 3.3 L 3.5-5.1 mmol/L Chloride Level 103 98-107 mmol/L Carbon Dioxide Level 27 20-31 mmol/L Anion Gap 8 5-15 Blood Urea Nitrogen 18 9-23 mg/dL Creatinine 0.68 L 0.700-1.30 mg/dL Glomerular Filtration Rate Calc 95 >90 mL/min BUN/Creatinine Ratio 26.5 H 10.0-20.0 Serum Glucose 157 H 74-106 mg/dL Lactic Acid Level 1.2 0.4-2.0 mmol/L Calcium Level 9.3 8.7-10.4 mg/dL Total Bilirubin 0.9 0.2-1.0 mg/dL Aspartate Amino Transferase (AST) 28 13-40 U/L Alanine Aminotransferase (ALT) 25 7-40 U/L Alkaline Phosphatase 66 46-116 U/L Total Protein 6.5 5.7-8.2 g/dL Albumin 3.6 3.2-4.8 g/dL Lipase 46 12-53 U/L X-Ray, Labs, Meds, VS Comment 79-year-old male with a history of dementia, CVA and hypertension brought in by EMS with a finding of blood in his diaper. Vitals remarkable for BP 151/95 Exam unremarkable Rhythm strip independently interpreted by me: Sinus rhythm, rate 74, no ectopy. CT abdomen and pelvis IMPRESSION: 1. Possible wall thickening of the descending colon without significant surrounding fat stranding, nonspecific, can be seen in colitis. CBC remarkable for hemoglobin 12, hematocrit 36.2, metabolic panel remarkable for potassium 3.3, lipase normal Patient treated with the following in the ED: Potassium effervescent 50 mEq p.o., Zosyn 4.5 g IV, Protonix 40 mg IV Patient was resting comfortably with stable vitals on re-evaluation. He denied any abdominal pain, and abdominal exam was benign. Plan is to admit the patient for IV antibiotics and GI evaluation. Time of 1ST Reevaluation: 02:31 Reevaluation 1ST: Unchanged Patient Education/Counseling: Diagnosis, Treatment Family Education/Counseling: Diagnosis, Treatment Assigned to Dr. Camila Rodarte Change of Shift?: Yes Departure 1 Departure Time of Disposition: 04:22 Impression: Primary Impression: GI bleed Qualified Codes: K92.2 - Gastrointestinal hemorrhage, unspecified Additional Impression: Colitis Disposition: ADMITTED INPATIENT Admit to: [facility] Condition: Guarded Critical Care Note Critical Care Time?: No Stability Stability form required: No Heart Score Heart Score: Heart Score Response (Comments) Value History N/A 0 EKG N/A 0 Age N/A 0 Risk Factors N/A 0 Troponin N/A 0 Total 0 LAURA ALMANZAP Dec 23, 2024 02:34 PETER DE JESUS MD Dec 23, 2024 04:23
--- NOTE | 2024-12-23 02:43 | DVH ---
CHEST RADIOGRAPH Indication: sob Technique: Single frontal view of the chest was obtained Comparison: XY CHEST PORTABLE on DOS: 12/08/24 IMPRESSION: Heart appears normal in size. The lungs appear clear without focal airspace opacity, effusion, or pn eumothorax. Zipper over the right hemithorax.
--- NOTE | 2024-12-23 03:22 | DVH ---
Exam: CT CT AB PEL WO CON-NO ORAL OR IV History: gi bleed Comparison Study: None available at time of dictation. TECHNIQUE: Multidetector CT of the abdomen was performed from lung bases to pubic symphysis. Imaging was performed without IV contrast. Axial, coronal and sagittal multiplanar reformats were obtained fr om the axial data set by the technologist. Radiation optimization: All CT scans at this facility use at least one of these dose optimization ray hniques: automated exposure control mA and/or kV adjustment per patient size (includes targeted exam s where dose is matched to clinical indication) or iterative reconstruction. Radiation Dose Information: CT Dose: CTDI volume is 8.16 mGy. Dose-length product is 465.5 mGy*cm FINDINGS: Evaluation of solid organs is limited due to lack of intravenous contrast use. Findings: Imaged portions of the lung bases demonstrate patchy opacities in the lower lobes. Liver, spleen, gal lbladder and adrenal glands appear unremarkable. The kidneys appear symmetric without hydronephrosis . No evidence of bowel obstruction . Large colonic diverticula. Thickened appearance of the wall of th e descending colon without evidence of adjacent fat stranding. No free fluid, free air, or adenopath y. No suspicious osseous lesion. IMPRESSION: 1. Possible wall thickening of the descending colon without significant surrounding fat stranding, no nspecific, can be seen in colitis.
[2024-12-23] MEDS ORDERED: ONDANSETRON HCL 4 MG/2 ML VIAL IV PRN (04:45)
[2024-12-23] MEDS ORDERED: hydrALAZINE HCL 20 MG/ML VL IV PRN (04:45)
--- NOTE | 2024-12-23 04:53 | DVHHP2 ---
History of Present Illness Reason for Visit: GI bleed History of Present Illness 79-year-old male presents for evaluation of GI bleed. Patient presents with a one day history of large amount of old blood and clots in the diaper. Patient does have a history of dementia and stroke. No family at the bedside to provide further history. Past Medical History Hypertension, dementia, CVA Past Surgical History None Family History Noncontributory Smoke: No ALCOHOL: none Drugs: None Lives: with Family Review of Systems Review of Systems Review of systems are currently negative otherwise addressed in HPI. Allergies: Coded Allergies: NO KNOWN ALLERGIES (Unverified , 05/25/22) Medications Current Medications Medications Dose Ordered Sig/Mauro Route Start Time Stop Time Status Last Admin Dose Admin Metronidazole 100 ml @ 100 mls/hr Q8HR IV 12/23/24 06:00 UNV Pantoprazole Sodium 40 mg BID IV 12/23/24 10:00 UNV Hydralazine HCl 10 mg Q6HP PRN IV 12/23/24 04:45 UNV Ondansetron HCl 4 mg Q4HP PRN IV 12/23/24 04:45 UNV Exam Vital Signs Vital Signs Date Time Temp Pulse Resp B/P (MAP) Pulse Ox O2 Delivery O2 Flow Rate FiO2 12/23/24 00:54 74 12/23/24 00:45 97.8 18 151/95 (113) 97 Exam Gen: 79-year-old male in mild distress Skin: Warm, dry, normal color and texture, no rash. HEENT: Normocephalic atraumatic, mucous membranes moist and pink. Neck: Cervical and supraclavicular nodes normal without enlargement, trachea is midline, thyroid gland is normal without masses. Pulmonary: Clear to auscultation and percussion bilaterally. Cardiac: Regular rate and rhythm. No murmur Abdomen: Soft, nontender, nondistended, bowel sounds present all 4 quadrants, no guarding, no rigidity, no organomegaly. Extremities: No cyanosis, clubbing, no edema Neuro: Lethargic, left-sided deficits from previous CVA Labs/Xrays ORDERING PHYSICIAN: LAURA ALMANZA PROCEDURE(s): CXR1 - CHEST XRAY 1 VIEW REASON: sob ORDER NUMBER(s): [id number], ACCESSION NUMBER(s): [id number] CHEST RADIOGRAPH Indication: sob Technique: Single frontal view of the chest was obtained Comparison: XY CHEST PORTABLE on DOS: 12/08/24 IMPRESSION: Heart appears normal in size. The lungs appear clear without focal airspace opacity, effusion, or pneumothorax. Zipper over the right hemithorax. RING PHYSICIAN: LAURA ALMANZA PROCEDURE(s): ABPL - CT AB PEL WO CON-NO ORAL OR IV REASON: gi bleed ORDER NUMBER(s): [id number], ACCESSION NUMBER(s): [id number] Exam: CT CT AB PEL WO CON-NO ORAL OR IV History: gi bleed Comparison Study: None available at time of dictation. TECHNIQUE: Multidetector CT of the abdomen was performed from lung bases to pubic symphysis. Imaging was performed without IV contrast. Axial, coronal and sagittal multiplanar reformats were obtained from the axial data set by the technologist. Radiation optimization: All CT scans at this facility use at least one of these dose optimization techniques: automated exposure control mA and/or kV adjustment per patient size (includes targeted exams where dose is matched to clinical indication) or iterative reconstruction. Radiation Dose Information: CT Dose: CTDI volume is 8.16 mGy. Dose-length product is 465.5 mGy*cm FINDINGS: Evaluation of solid organs is limited due to lack of intravenous contrast use. Findings: Imaged portions of the lung bases demonstrate patchy opacities in the lower lobes. Liver, spleen, gallbladder and adrenal glands appear unremarkable. The kidneys appear symmetric without hydronephrosis. No evidence of bowel obstruction . Large colonic diverticula. Thickened appearance of the wall of the descending colon without evidence of adjacent fat stranding. No free fluid, free air, or adenopathy. No suspicious osseous lesion. IMPRESSION: 1. Possible wall thickening of the descending colon without significant surrounding fat stranding, nonspecific, can be seen in colitis. ATED BY: OWEN SOLITARIO MD Labs Test 12/23/24 01:24 Range/Units White Blood Count 6.0 # 4.4-10.8 10^3/uL Red Blood Count 3.88 L 4.5-5.90 10^6/uL Hemoglobin 12.0 L 13.5-17.5 g/dL Hematocrit 36.2 L 41.0-53.0 % Mean Corpuscular Volume 93.3 80.0-100.0 fL Mean Corpuscular Hemoglobin 30.8 28.0-32.0 pg Mean Corpuscular Hemoglobin Concent 33.0 32.0-36.0 g/dL Red Cell Distribution Width 14.0 11.8-14.3 % Platelet Count 207 140-450 10^3/uL Mean Platelet Volume 10.3 6.9-10.8 fL Neutrophils (%) (Auto) 59.4 37.0-80.0 % Lymphocytes (%) (Auto) 30.8 10.0-50.0 % Monocytes (%) (Auto) 8.7 0.0-12.0 % Eosinophils (%) (Auto) 0.5 0.0-7.0 % Basophils (%) (Auto) 0.6 0.0-2.0 % Neutrophils # (Auto) 3.5 1.6-8.6 10 ^3/uL Lymphocytes # (Auto) 1.8 0.4-5.4 10 ^3/uL Monocytes # (Auto) 0.5 0-1.3 10 ^3/uL Eosinophils # (Auto) 0 0-0.8 10 ^3/uL Basophils # (Auto) 0 0-0.2 10 ^3/uL Nucleated Red Blood Cells 0.3 % Sodium Level 138 136-145 mmol/L Potassium Level 3.3 L 3.5-5.1 mmol/L Chloride Level 103 98-107 mmol/L Carbon Dioxide Level 27 20-31 mmol/L Anion Gap 8 5-15 Blood Urea Nitrogen 18 9-23 mg/dL Creatinine 0.68 L 0.700-1.30 mg/dL Glomerular Filtration Rate Calc 95 >90 mL/min BUN/Creatinine Ratio 26.5 H 10.0-20.0 Serum Glucose 157 H 74-106 mg/dL Lactic Acid Level 1.2 0.4-2.0 mmol/L Calcium Level 9.3 8.7-10.4 mg/dL Total Bilirubin 0.9 0.2-1.0 mg/dL Aspartate Amino Transferase (AST) 28 13-40 U/L Alanine Aminotransferase (ALT) 25 7-40 U/L Alkaline Phosphatase 66 46-116 U/L Total Protein 6.5 5.7-8.2 g/dL Albumin 3.6 3.2-4.8 g/dL Lipase 46 12-53 U/L Assessment/Plan Assessment/Plan Assessment GI bleed CVA with left-sided deficits UTI Hypertension Plan Admit the patient to Med surge to the hospitalist NPO GI consultation Continue treatment per orders. Plan discussed with: Patient My Orders Orders - ROGE AL Procedure Category Date Status Time Metronidazole PHA 12/23/24 Logged 500mg/100ml (Flagyl 06:00 Pantoprazole PHA 12/23/24 Transmitted (Protonix) 10:00 Hemoglobin & LAB 12/23/24 Logged Hematocrit 08:00 Basic Metabolic Panel LAB 12/24/24 Verified 04:00 PTPTT LAB 12/23/24 In Process 04:36 Stool Occult Blood LAB 12/23/24 Logged 04:36 * Gi Dvh Advertisement Distributor CONS 12/23/24 Transmitted 04:36 Hydralazine Injection PHA 12/23/24 Transmitted (Apresoline Inject 04:45 Admit ADMIT 12/23/24 Transmitted 04:36 Ondansetron Hcl PHA 12/23/24 Logged (Zofran) 04:45 Complete Blood Count LAB 12/24/24 Verified 04:00 Npo (Nothing By DIET 12/23/24 Transmitted Mouth) Diet Breakfast Condition: Stable NALINI 12/23/24 In Process 04:36 Bedrest With Bathroom NALINI 12/23/24 In Process Privileg 04:36 Sodium Chloride 0.9% PHA 12/23/24 Logged 04:45 Date of Service: Dec 23, 2024 Billing Provider: ROGE AL Common Visit Codes: [id number] INP/OBS CARE (HIGH) ROGE AL Dec 23, 2024 04:53
[2024-12-23 05:10] LABS: INR 1.04 (0.9-1.15); Partial Thromboplastin Time 27.3 SEC (24.5-34.5)
--- NOTE | 2024-12-23 05:21 | ECG ---
[facility] Test Date: 2024-12-23 Test Time: 00:54:24 Pat Name: NORMAN KUMAR Department: ED Room: 0204 Gender: M Certified Industrial Hygienist: YESENIA : 1945 Requested By: LAURA ALMANZA Order Number: [id number] Reading MD: Pb Wynn Measurements Intervals Reading Rate: 74 P: -10 AK: 167 QRS: 40 QRSD: 89 T: 63 QT: 415 QTc: 461 Interpretive Statements Sinus rhythm Abnormal R-wave progression, early transition Left ventricular hypertrophy Electronically Signed On 12-25-2024 22:04:11 PST by Pb Wynn Please click the below link to view image of tracing.
[2024-12-23] MEDS: PANTOPRAZOLE 40 MG/10 ML VIAL INJ IV ONE (08:00)
[2024-12-23] MEDS: POTASSIUM EFFERVESENT TAB 25 MEQ PO ONE (08:02)
[2024-12-23] MEDS: PIPERACILLIN-TAZO 4.5GM 100 ML IV ONE (08:02)
[2024-12-23 08:23] LABS: Hematocrit 32.3 % (41.0-53.0); Hemoglobin 10.9 g/dL (13.5-17.5)
[2024-12-23] MEDS: metroNIDAZOLE 500MG/100ML 100 ML IV SCH (08:43)
[2024-12-23 09:33] VITALS: PULSE 91; RESP 20; O2SAT 96
[2024-12-23] MEDS: SODIUM CHLORIDE 0.9% 1,000 ML IV ONE (09:58)
[2024-12-23] MEDS: PANTOPRAZOLE 40 MG/10 ML VIAL INJ IV SCH ×2 (10:01→16:33)
--- NOTE | 2024-12-23 15:19 | DVHCONRES ---
Date Seen: Dec 23, 2024 Resident Creating Document: LIZZ HAIDER RESIDENT Referring Physician INDER Rocha Reason for Consultation Per rectal bleeding History of Present Illness 79-year-old male brought in by EMS. Caregivers called EMS because patient had bowel movement with large amount of blood and clots in his diaper. Patient does have a history of dementia and prior stroke. Patient is typically A& O 1-2. Patient denies any pain. Bloody bowel movement happened at approximately 11:00 p.m.. No prior cough or congestion no prior fever. Patient was seen and examined on the bedside. He is alert oriented X 2. The patient did not have any bowel movement since the admission and no per rectal bleeding. No other active complaint Family History: Patient reports no known family medical history. Allergies: Coded Allergies: NO KNOWN ALLERGIES (Unverified , 05/25/22) Home Meds Active Scripts Levofloxacin Hemihydrate (LEVAQUIN 500 MG) 500 Mg Tab, 1 TAB PO DAILY for 5 Days, #5 TAB Prov:ERIC NEVILLE GIRL 12/11/24 Celecoxib (CeleBREX CAPSULE) 100 Mg Cp, 1 CAP PO BID for 20 Days, #40 CAP 3 Refills Prov:ERIC NEVILLE GIRL 12/11/24 Reported Medications Lisinopril & Hydrochlorothiazi (Lisinopril/Hydrochlorothi) 1 Tab Tab, 1 TAB PO DAILY, TAB 12/09/24 Atorvastatin Calcium (Lipitor) 80 Mg Tab, 40 MG PO DAILY, TAB 09/11/23 Aspirin (Aspirin Low Dose) 81 Mg Chw, 81 MG PO DAILY, TAB.CHEW 09/11/23 Tamsulosin HCl (Tamsulosin Hydrochloride) 0.4 Mg Cap, 0.4 MG PO HS, CAP 09/11/23 Metoprolol Tartrate (LOPRESSOR TABLET) 50 Mg Tb, 50 MG PO BID, TAB 09/11/23 Current Medications Current Medications Medications (Trade) Dose Ordered Sig/Mauro Route PRN Reason Start Time Stop Time Status Last Admin Metronidazole 100 ml @ 100 mls/hr Q8HR IV 12/23/24 06:00 12/23/24 08:43 Pantoprazole Sodium (Protonix) 40 mg BID IV 12/23/24 10:00 12/23/24 10:01 Hydralazine HCl (Apresoline Injection) 10 mg Q6HP PRN IV SBP>150 12/23/24 04:45 Ondansetron HCl (Zofran) 4 mg Q4HP PRN IV NAUSEA / VOMITING 12/23/24 04:45 Vital Signs Vital Signs Date Time Temp Pulse Resp B/P (MAP) Pulse Ox O2 Delivery O2 Flow Rate FiO2 12/23/24 11:00 95 20 140/69 (92) 96 12/23/24 09:53 98.5 98.5 12/23/24 09:33 Room Air* 0 21 Physical Exam Physical examination: General Appearance: Alert, Oriented X3, Cooperative, No acute distress HEENT: Atraumatic, PERRLA, EOMI, Mucous membrane moist/pink Respiratory: Clear to auscultation, Normal air movement Cardiovascular: Regular rate, Normal S1, Normal S2, No murmurs, no chest wall tenderness Abdominal: Normal bowel sounds, Soft, No tenderness, No hepatospenomegaly, No masses Extremities: No clubbing, No cyanosis, No edema, Normal pulses, No tenderness/swelling Skin: No rashes, No breakdown, No significant lesion Neuro: Bed bound, Normal speech, Strength at 5/5 X4 ext, Normal tone, Sensation intact, grossly intact cranial nerves. Psych/Mental Status: Mental status NL, Mood NL Labs/Diagnostic Data Labs Test 12/23/24 07:59 12/23/24 07:43 12/23/24 01:24 Range/Units Hemoglobin 10.9 L 13.5-17.5 g/dL Hematocrit 32.3 #L 41.0-53.0 % POC Glucose 125 H 70-106 mg/dl White Blood Count 6.0 # 4.4-10.8 10^3/uL Red Blood Count 3.88 L 4.5-5.90 10^6/uL Mean Corpuscular Volume 93.3 80.0-100.0 fL Mean Corpuscular Hemoglobin 30.8 28.0-32.0 pg Mean Corpuscular Hemoglobin Concent 33.0 32.0-36.0 g/dL Red Cell Distribution Width 14.0 11.8-14.3 % Platelet Count 207 140-450 10^3/uL Mean Platelet Volume 10.3 6.9-10.8 fL Neutrophils (%) (Auto) 59.4 37.0-80.0 % Lymphocytes (%) (Auto) 30.8 10.0-50.0 % Monocytes (%) (Auto) 8.7 0.0-12.0 % Eosinophils (%) (Auto) 0.5 0.0-7.0 % Basophils (%) (Auto) 0.6 0.0-2.0 % Neutrophils # (Auto) 3.5 1.6-8.6 10 ^3/uL Lymphocytes # (Auto) 1.8 0.4-5.4 10 ^3/uL Monocytes # (Auto) 0.5 0-1.3 10 ^3/uL Eosinophils # (Auto) 0 0-0.8 10 ^3/uL Basophils # (Auto) 0 0-0.2 10 ^3/uL Nucleated Red Blood Cells 0.3 % Prothrombin Time 11.0 9.3-11.8 sec Prothrombin Time INR 1.04 0.9-1.15 Activated Partial Thromboplast Time 27.3 24.5-34.5 SEC Sodium Level 138 136-145 mmol/L Potassium Level 3.3 L 3.5-5.1 mmol/L Chloride Level 103 98-107 mmol/L Carbon Dioxide Level 27 20-31 mmol/L Anion Gap 8 5-15 Blood Urea Nitrogen 18 9-23 mg/dL Creatinine 0.68 L 0.700-1.30 mg/dL Glomerular Filtration Rate Calc 95 >90 mL/min BUN/Creatinine Ratio 26.5 H 10.0-20.0 Serum Glucose 157 H 74-106 mg/dL Lactic Acid Level 1.2 0.4-2.0 mmol/L Calcium Level 9.3 8.7-10.4 mg/dL Total Bilirubin 0.9 0.2-1.0 mg/dL Aspartate Amino Transferase (AST) 28 13-40 U/L Alanine Aminotransferase (ALT) 25 7-40 U/L Alkaline Phosphatase 66 46-116 U/L Total Protein 6.5 5.7-8.2 g/dL Albumin 3.6 3.2-4.8 g/dL Lipase 46 12-53 U/L Assessment Assessment: # Lower GI bleeding # Possible Ischemic colitis as CT abdomen showed possible wall thickening of the descending colon without significant surrounding fat stranding. # Possible stercoral colitis from obstipation # Possible Diverticular bleeding # Acute normocytic anaemia due to GI bleeding. # Hypokalemia Plan: - Clear liquid diet - Protonix 40 mg IV daily - Monitor H&H - Transfuse if hemoglobin drops less than 7 - Pending stool occult blood - Colace 100 mg p.o. b.i.d. and MiraLax powder p.o. daily p.r.n. - Continue IV antibiotics as per primary for possible colitis - we will follow the patient and GI is standby for any acute emergency colonoscopy if needed. Plan discussed with Dr. Brandon Plan discussed with: Patient, Other LIZZ HAIDER RESIDENT Dec 23, 2024 15:19
--- NOTE | 2024-12-23 15:25 | DVHPN2 ---
Subjective 79-year-old male with a history of dementia and a prior stroke was admitted here due to rectal bleeding The patient is not able to give any history Changes from previous H/P or p: Changes Objective Vitals Vital Signs Date Time Temp Pulse Resp B/P (MAP) Pulse Ox O2 Delivery O2 Flow Rate FiO2 12/23/24 11:00 95 20 140/69 (92) 96 12/23/24 09:53 98.5 98.5 12/23/24 09:33 Room Air* 0 21 General Appearance: Alert, Other (Disoriented to place and time) Lungs: Clear to auscultation, Normal air movement Cardiovascular: Regular rate, Normal S1, Normal S2 Abdomen: Normal bowel sounds, Soft, No tenderness Extremities: No edema Medications Current Medications Medications Dose Ordered Sig/Mauro Route Start Time Stop Time Status Last Admin Dose Admin Metronidazole 100 ml @ 100 mls/hr Q8HR IV 12/23/24 06:00 12/23/24 08:43 100 MLS/HR Pantoprazole Sodium 40 mg BID IV 12/23/24 10:00 12/23/24 10:01 40 MG Hydralazine HCl 10 mg Q6HP PRN IV 12/23/24 04:45 Ondansetron HCl 4 mg Q4HP PRN IV 12/23/24 04:45 Laboratory Results Laboratory Tests 12/23/24 01:24 12/23/24 07:59 Chemistry Test 12/23/24 01:24 Albumin 3.6 g/dL (3.2-4.8) Calcium Level 9.3 mg/dL (8.7-10.4) Total Protein 6.5 g/dL (5.7-8.2) Coagulation Test 12/23/24 01:24 Prothrombin Time 11.0 sec (9.3-11.8) Prothrombin Time INR 1.04 (0.9-1.15) Activated Partial Thromboplast Time 27.3 SEC (24.5-34.5) Lipid panel Test 12/23/24 01:24 Lipase 46 U/L (12-53) LFT Test 12/23/24 01:24 Alanine Aminotransferase (ALT) 25 U/L (7-40) Alkaline Phosphatase 66 U/L (46-116) Aspartate Amino Transferase (AST) 28 U/L (13-40) Total Bilirubin 0.9 mg/dL (0.2-1.0) Assessment/Plan Assessment/Plan Rectal bleeding Anemia due to blood loss Dementia History of stroke Hypokalemia Possible colitis Plan Clear liquid diet IV fluids IV Flagyl GI consult IV Protonix Replace potassium as needed Monitor the patient closely The rest of the management will depend on the hospital course I called the number listed for the family contact, no answer Code status is unknown since we are not able to get hold of the family Plan discussed with: Patient, Other Date of Service: Dec 23, 2024 Billing Provider: DARIN JOYCE MD Common Visit Codes: [id number] INP/OBS CARE(HIGH) DARIN JOYCE MD Dec 23, 2024 15:25
[2024-12-23] MEDS ORDERED: POLYETHYLENE GLYCOL 17 GM PWDR PO PRN (15:45)
[2024-12-23 19:30] VITALS: PULSE 101; RESP 18; O2SAT 96
[2024-12-23] MEDS: DOCUSATE SOD 100 MG CAP PO SCH (21:32)
[2024-12-23] MEDS: HYDROcodone-ACET 5/325MG TAB PO ONE (22:50)
[2024-12-24 03:33] LABS: Basophils # (auto) 0 10 ^3/uL (0-0.2); Basophils % (auto) 0.4 % (0.0-2.0); Eosinophils # (auto) 0 10 ^3/uL (0-0.8); Eosinophils % (auto) 0.1 % (0.0-7.0); Hematocrit 28.9 % (41.0-53.0); Hemoglobin 9.9 g/dL (13.5-17.5); Lymphocytes # (auto) 1.8 10 ^3/uL (0.4-5.4); Lymphocytes % (auto) 24.3 % (10.0-50.0); Mean Corpuscular Hemoglobin 31.6 pg (28.0-32.0); Mean Corpuscular Hgb Conc. 34.1 g/dL (32.0-36.0); Mean Corpuscular Volume 92.5 fL (80.0-100.0); Monocytes # (auto) 0.7 10 ^3/uL (0-1.3); Monocytes % (auto) 10.1 % (0.0-12.0); Neutrophils # (auto) 4.7 10 ^3/uL (1.6-8.6); Neutrophils % (auto) 65.1 % (37.0-80.0); Nucleated Red Blood Cells % 0.1 %; Platelet Count (auto) 231 10^3/uL (140-450); Red Blood Cells 3.12 10^6/uL (4.5-5.90); Red Cell Distribution Width 13.7 % (11.8-14.3); White Blood Cell 7.3 10^3/uL (4.4-10.8)
[2024-12-24 03:44] LABS: Alanine Aminotransferase 19 U/L (7-40); Albumin 3.5 g/dL (3.2-4.8); Alkaline Phosphatase 62 U/L (46-116); Anion Gap 8 (5-15); Aspartate Aminotransferase 29 U/L (13-40); BUN/Creatinine Ratio 27.3 (10.0-20.0); Blood Urea Nitrogen 18 mg/dL (9-23); Calcium 9.1 mg/dL (8.7-10.4); Carbon Dioxide 29 mmol/L (20-31); Chloride 105 mmol/L (98-107); Magnesium 2.2 mg/dL (1.6-2.6); Potassium 3.8 mmol/L (3.5-5.1); Sodium 142 mmol/L (136-145)
[2024-12-24 03:45] LABS: Bilirubin, Total 0.9 mg/dL (0.2-1.0); Total Protein 6.2 g/dL (5.7-8.2)
[2024-12-24 03:52] LABS: INR 1.04 (0.9-1.15)
[2024-12-24 03:58] LABS: Glucose 121 mg/dL (74-106)
[2024-12-24 05:13] VITALS: PULSE 94; RESP 17; O2SAT 95
[2024-12-24 05:18] VITALS: BP_SYST 159; PULSE 107; O2SAT 94
[2024-12-24 09:00] VITALS: BP 153/86
--- NOTE | 2024-12-24 11:41 | DVHDS2 ---
Discharge Summary Date of Admission Dec 23, 2024 at 04:36 Date of Discharge: Dec 24, 2024 Labs/Diagnostic Data: Laboratory Results Test 12/24/24 02:55 12/23/24 07:43 12/23/24 01:24 White Blood Count 7.3 10^3/uL (4.4-10.8) Red Blood Count 3.12 10^6/uL (4.5-5.90) Hemoglobin 9.9 g/dL (13.5-17.5) Hematocrit 28.9 % (41.0-53.0) Mean Corpuscular Volume 92.5 fL (80.0-100.0) Mean Corpuscular Hemoglobin 31.6 pg (28.0-32.0) Mean Corpuscular Hemoglobin Concent 34.1 g/dL (32.0-36.0) Red Cell Distribution Width 13.7 % (11.8-14.3) Platelet Count 231 10^3/uL (140-450) Mean Platelet Volume 10.1 fL (6.9-10.8) Neutrophils (%) (Auto) 65.1 % (37.0-80.0) Lymphocytes (%) (Auto) 24.3 % (10.0-50.0) Monocytes (%) (Auto) 10.1 % (0.0-12.0) Eosinophils (%) (Auto) 0.1 % (0.0-7.0) Basophils (%) (Auto) 0.4 % (0.0-2.0) Neutrophils # (Auto) 4.7 10 ^3/uL (1.6-8.6) Lymphocytes # (Auto) 1.8 10 ^3/uL (0.4-5.4) Monocytes # (Auto) 0.7 10 ^3/uL (0-1.3) Eosinophils # (Auto) 0 10 ^3/uL (0-0.8) Basophils # (Auto) 0 10 ^3/uL (0-0.2) Nucleated Red Blood Cells 0.1 % Prothrombin Time 11.0 sec (9.3-11.8) Prothrombin Time INR 1.04 (0.9-1.15) Activated Partial Thromboplast Time 27.0 SEC (24.5-34.5) Sodium Level 142 mmol/L (136-145) Potassium Level 3.8 mmol/L (3.5-5.1) Chloride Level 105 mmol/L (98-107) Carbon Dioxide Level 29 mmol/L (20-31) Anion Gap 8 (5-15) Blood Urea Nitrogen 18 mg/dL (9-23) Creatinine 0.66 mg/dL (0.700-1.30) Glomerular Filtration Rate Calc 95 mL/min (>90) BUN/Creatinine Ratio 27.3 (10.0-20.0) Serum Glucose 121 mg/dL (74-106) Calcium Level 9.1 mg/dL (8.7-10.4) Magnesium Level 2.2 mg/dL (1.6-2.6) Total Bilirubin 0.9 mg/dL (0.2-1.0) Aspartate Amino Transferase (AST) 29 U/L (13-40) Alanine Aminotransferase (ALT) 19 U/L (7-40) Alkaline Phosphatase 62 U/L (46-116) Total Protein 6.2 g/dL (5.7-8.2) Albumin 3.5 g/dL (3.2-4.8) POC Glucose 125 mg/dl (70-106) Lactic Acid Level 1.2 mmol/L (0.4-2.0) Lipase 46 U/L (12-53) Other Laboratory Tests 12/24/24 02:55 Brief Hx & Hospital Course: Final diagnoses: Rectal bleeding most likely due to hemorrhoids Anemia due to blood loss Dementia History of stroke Hypokalemia Possible colitis 79-year-old male was admitted for rectal bleeding 1 time at home Hemoglobin on admission was 12 which dropped to 9.9 today No more episodes of any bleeding GI saw him and recommended outpatient follow up with colonoscopy According to his son he had a colonoscopy many many years ago At this point the patient is stable for discharge Follow up with his primary care physician as soon as possible to get a referral to have an outpatient colonoscopy Resume the home medications Stable for discharge Condition at Discharge: Stable Final Diagnosis/Problems List Rectal bleeding Anemia due to blood loss Dementia History of stroke Hypokalemia Possible colitis Discharge Disposition: Home SNF Discharge Will this Physician continue t: No Discharge Statement: "Patient was advised to return to the ER or call 911 if any headaches, dizziness, shortness of breath, chest pain, abdominal pain, bleeding, fevers, or worsening of medical condition. Patient was counseled about treatment plan, medications, possible side effects, patientverbalized understanding. All questions were answered to the best of my ability. This discharge took greater then 30 minutes in planning, reviewing documentation, counseling the patient, and discussing with other team members." ASSESSMENT ASSESSMENT Assessment Date of Service: Dec 24, 2024 Billing Provider: DARIN JOYCE MD Common Visit Codes: 79055-UPW/OBS DISCH DAY >30min DARIN JOYCE MD Dec 24, 2024 11:41
[2024-12-24 12:58] VITALS: BP 146/86; PULSE 110; RESP 20; TEMP 99; O2SAT 94
--- NOTE | 2024-12-24 13:35 | DVHPN2 ---
Progress Note Date Seen: Dec 24, 2024 Resident Creating Document: LIZZ HAIDER RESIDENT Medical Necessity Reason Pt with a Central, PICC or Fol: No Subjective Review of Systems Patient was seen and examined on the bedside. He is alert oriented x3. No complaint of any per rectal bleeding or any bloody stool since admission. No other active complaint Objective vital signs Vital Sign Date Time Temp Pulse Resp B/P (MAP) Pulse Ox O2 Delivery O2 Flow Rate FiO2 12/24/24 12:58 99.0 110 20 146/86 (106) 94 99.0 12/24/24 08:00 Room Air* 0 21 Total Intake and Output 12/23/24 12/23/24 12/24/24 15:00 23:00 07:00 Intake Total 350 ml Balance 350 ml medications Current Medications Medications Dose Ordered Sig/Mauro Route Start Time Stop Time Status Last Admin Dose Admin Metronidazole 100 ml @ 100 mls/hr Q8HR IV 12/23/24 06:00 12/24/24 06:08 100 MLS/HR Hydralazine HCl 10 mg Q6HP PRN IV 12/23/24 04:45 Ondansetron HCl 4 mg Q4HP PRN IV 12/23/24 04:45 Pantoprazole Sodium 40 mg DAILY IV 12/23/24 15:45 12/24/24 10:38 40 MG Docusate Sodium 100 mg BID PO 12/23/24 22:00 12/24/24 10:38 100 MG Polyethylene Glycol 17 gm DAILYPRN PRN PO 12/23/24 15:45 Examination Physical examination: General Appearance: Alert, Oriented X3, Cooperative, No acute distress HEENT: Atraumatic, PERRLA, EOMI, Mucous membrane moist/pink Respiratory: Clear to auscultation, Normal air movement Cardiovascular: Regular rate, Normal S1, Normal S2, No murmurs, no chest wall tenderness Abdominal: Normal bowel sounds, Soft, No tenderness, No hepatospenomegaly, No masses Extremities: No clubbing, No cyanosis, No edema, Normal pulses, No tenderness/swelling Skin: No rashes, No breakdown, No significant lesion Neuro: Bed bound, Normal speech, Strength at 5/5 X4 ext, Normal tone, Sensation intact, Cranial nerves 3-12 NL, Reflexes 2+ Psych/Mental Status: Mental status NL, Mood NL laboratory and microbiology Laboratory Tests 12/24/24 02:55 Test 12/24/24 02:55 Range/Units Serum Glucose 121 H 74-106 mg/dL Labs and/or images reviewed: Labs reviewed by me, Image(s) reviewed by me Problem List/Assessment/Plan Problem List/Assessment/Plan Assessment: # Lower GI bleeding # Possible Ischemic colitis as CT abdomen showed possible wall thickening of the descending colon without significant surrounding fat stranding. # Possible stercoral colitis from obstipation # Possible Diverticular bleeding # Acute normocytic anaemia due to GI bleeding. # Hypokalemia Plan: - Soft diet - Protonix 40 mg IV daily - Monitor H&H - Transfuse if hemoglobin drops less than 7 - Pending stool occult blood - Colace 100 mg p.o. b.i.d. and Miralax powder p.o. daily p.r.n. - Continue IV antibiotics as per primary for possible colitis - recommended outpatient elective colonoscopy and follow up with GI clinic after discharge. Plan discussed with Dr. Brandon Plan discussed with: Patient, Other My Orders My Orders Orders - LIZZ HAIDER Procedure Category Date Status Time Pantoprazole PHA 12/23/24 In Process (Protonix) 15:45 Docusate Sodium PHA 12/23/24 In Process Capsule (Colace 22:00 Polyethylene Glycol PHA 12/23/24 In Process 17g Powder (Miralax 15:45 LIZZ HAIDER RESIDENT Dec 24, 2024 13:35
== END 2024-12-24 16:00 | disposition home or self-care (01) | DRG 393 ==
LOC: ER 00:42 → EDBD 00:42 → OVERFLOW 04:36 → CENTRAL 12-24 05:13
PROVIDERS: ADMIT Internal Medicine Geriatric Medicine; ATTEND Internal Medicine Geriatric Medicine
DX: K64.9 Unspecified hemorrhoids (principal); K57.31 Diverticulosis of large intestine without perforation or abscess with bleeding; K55.9 Vascular disorder of intestine, unspecified; N39.0 Urinary tract infection, site not specified; D62 Acute posthemorrhagic anemia; E87.6 Hypokalemia; F03.90 Unspecified dementia, unspecified severity, without behavioral disturbance, psychotic disturbance, mood disturbance, and anxiety; I10 Essential (primary) hypertension; K52.9 Noninfective gastroenteritis and colitis, unspecified; Z86.73 Personal history of transient ischemic attack (TIA), and cerebral infarction without residual deficits; Z79.899 Other long term (current) drug therapy
CPT/HCPCS: 36415; 71045; 74176; 80053; 80061; 81001; 82962; 83036; 83605; 83690; 83735; 84153; 84443; 85007; 85014; 85018; 85025; 85027; 85610; 85730; 86850; 86900; 86901; 93005; 96365; 96375; G0378; J2470; J2543; J3490

== ENCOUNTER 2025-07-01 07:31 | Outpatient (CLI) | payer OTHER ==
[~2025-07-01 07:31] MED LIST changes: -LEVO500T91 PO
[2025-07-01 08:57] LABS: Hematocrit 36.5 % (41.0-53.0); Hemoglobin 12.6 g/dL (13.5-17.5); Mean Corpuscular Hemoglobin 32.5 pg (28.0-32.0); Mean Corpuscular Volume 94.3 fL (80.0-100.0)
[2025-07-01 09:05] LABS: Urine Protein, UAD TRACE (Negative)
[2025-07-01 09:44] LABS: Alanine Aminotransferase 12 U/L (7-40); Albumin 3.9 g/dL (3.2-4.8); Alkaline Phosphatase 60 U/L (46-116); Anion Gap 8 (5-15); BUN/Creatinine Ratio 12.0 (10.0-20.0); Blood Urea Nitrogen 9 mg/dL (9-23); Calcium 9.1 mg/dL (8.7-10.4); Chloride 102 mmol/L (98-107); Cholesterol 121 mg/dL (< 200); Glucose 91 mg/dL (74-106); HDL Cholesterol 45 mg/dL (40-59); Sodium 142 mmol/L (136-145); Total Protein 6.8 g/dL (5.7-8.2); Triglycerides 49 mg/dL (< 150)
[2025-07-01 09:45] LABS: Bilirubin, Total 0.8 mg/dL (0.2-1.0)
[2025-07-01 09:59] LABS: Carbon Dioxide 32 mmol/L (20-31); Potassium 3.2 mmol/L (3.5-5.1)
[2025-07-01 11:34] LABS: Total Cells Counted 100.0 (100)
== END 2025-07-01 17:00 | disposition home or self-care (01) ==
LOC: LAB 07:31
PROVIDERS: ATTEND Student in an Organized Health Care Education/Training Program
DX: I10 Essential (primary) hypertension (principal); E78.5 Hyperlipidemia, unspecified
CPT/HCPCS: 36415; 80053; 80061; 81001; 85007; 85027

== ENCOUNTER 2025-09-10 15:18 | Outpatient (CLI) | payer OTHER ==
[2025-09-10 16:42] LABS: Free T4 (Free Thyroxine) 1.32 ng/dL (0.89-1.76)
== END 2025-09-10 17:00 | disposition home or self-care (01) ==
LOC: LAB 15:18
PROVIDERS: ATTEND Psychiatry & Neurology Neurology
DX: G30.1 Alzheimer's disease with late onset (principal); R41.3 Other amnesia
CPT/HCPCS: 36415; 82607; 82746; 84439; 84443